=== PATIENT | female | born 1965 ===

== ENCOUNTER 2020-05-11 11:22 | Outpatient (REF) | payer OTHER, SELFPAY ==
[2020-05-11 14:28] LABS: Alanine Aminotransferase 35 U/L (0-31); Albumin Level 4.5 g/dL (3.5-5.0); Alkaline Phosphatase 53 U/L (39-117); Anion Gap 13 (12-20); Aspartate Amino Transferase 28 U/L (5-31); Bilirubin Total 0.5 mg/dL (0.0-1.0); Blood Urea Nitrogen 12 mg/dL (9-16); Carbon Dioxide 30 mmol/L (22-29); Chloride 100 mmol/L (96-108); Cholesterol 192 mg/dL; Estimated Glomerular Filt Rate > 60; Glucose Fasting 105 mg/dL (60-99); HDL Cholesterol 64 mg/dL; LDL Cholesterol Calculated 115 mg/dl; Potassium 4.2 mmol/l (3.3-5.1); Sodium 139 mmol/L (135-145); Total Protein 7.5 g/dL (6.5-8.0); Triglycerides 67 mg/dL
[2020-05-11 14:30] LABS: Estimated Average Glucose 126 mg/dL
[2020-05-11 14:32] LABS: Calcium 10.1 mg/dL (8.4-10.2)
== END 2020-05-11 11:23 | disposition home or self-care (01) ==
LOC: HO.HMGCLDS 11:22
PROVIDERS: PCP Internal Medicine; Visit Provider Internal Medicine
DX: Z11.1 Encounter for screening for respiratory tuberculosis (principal); I10 Essential (primary) hypertension; Z78.0 Asymptomatic menopausal state
CPT/HCPCS: 80053; 80061; 82306; 83036; 86481

== ENCOUNTER → 2020-07-05 13:43 | Outpatient (REF) | payer OTHER, SELFPAY ==
--- NOTE | 2020-07-05 13:49 | ECG_ITS ---
Hook-up date: 2020-07-05 13:55:00 Duration: 20:27:00 Test Indications: PALPITATIONS Medications: 32403 QRS complexes 1414 Ventricular ectopics which represent 2 % of total QRS comp. * Supraventricular ectopics which represent % of total QRS comp. * Paced QRS complexs which represent % of total QRS comp. VENTRICULAR ECTOPY 1414 Isolated 3 Bigeminal Cycles 0 Couplets 0 Runs 0 Beats in Runs * Beats LONGEST at * BPM at :: -- * Beats FASTEST at * BPM at :: -- SUPRAVENTRICULAR ECTOPY * Isolated * Couplets * Runs * Beats in Runs * Beats LONGEST at * BPM at :: -- * Beats FASTEST at * BPM at :: -- HEART RATES 35 MIN at 05:53:48 2020-07-06 59 AVG 108 MAX at 19:07:36 2020-07-05 LONGEST RR 1.7440 secs at 05:53:47 2020-07-06 S-T LEVELS Channel 1 - 128 mm at 13:55:00 2020-07-05 - 128 mm at 13:55:00 2020-07-05 Channel 2 - 128 mm at 13:55:00 2020-07-05 - 128 mm at 13:55:00 2020-07-05 Channel 3 - 128 mm at 03:31:41 -- - 128 mm at 03:31:41 Basic rhythm Normal sinus rhythm Frequent Sinus bradycardia , 50% of time HR < 60 bpm No long pause or profound bradycardia Frequent Premature ventricular complexes , 2% of total beats, unifocal and isolated Patient did not report any symptoms in the diary Referred By: Ksenia Bergeron Overread By: USHA MARIN MD
== END ==
LOC: HO.CARD 13:43
PROVIDERS: PCP Internal Medicine; Visit Provider Internal Medicine
DX: R00.2 Palpitations (principal)
CPT/HCPCS: 93225; 93226

== ENCOUNTER 2020-07-24 10:09 | Outpatient (REF) | payer OTHER, SELFPAY ==
[2020-07-24 11:55] LABS: SARS COV2 IgG Negative (Negative)
== END 2020-07-24 10:10 | disposition home or self-care (01) ==
LOC: HO.HMGCLDS 10:09
PROVIDERS: PCP Internal Medicine; Visit Provider Internal Medicine
DX: R79.89 Other specified abnormal findings of blood chemistry (principal); Z20.828 Contact with and (suspected) exposure to other viral communicable diseases
CPT/HCPCS: 86769

== ENCOUNTER 2020-07-26 10:44 | Outpatient (REF) | payer OTHER, SELFPAY ==
[2020-07-26 11:03] LABS: COVID-19 Test Negative (Negative)
== END 2020-07-26 10:45 | disposition home or self-care (01) ==
LOC: HO.EMPCOV 10:44
PROVIDERS: Visit Provider Internal Medicine
DX: Z20.828 Contact with and (suspected) exposure to other viral communicable diseases (principal)
CPT/HCPCS: 87635; C9803

== ENCOUNTER → 2020-08-02 13:20 | Outpatient (BNVA) | payer OTHER, SELFPAY | PROVIDERS: PCP Internal Medicine; Visit Provider Internal Medicine Cardiovascular Disease | DX: R06.02 Shortness of breath (principal); I49.3 Ventricular premature depolarization; Q25.0 Patent ductus arteriosus; I10 Essential (primary) hypertension | CPT/HCPCS: 93005 ==

== ENCOUNTER → 2020-08-30 09:18 | Outpatient (REF) | payer OTHER, SELFPAY ==
--- NOTE | 2020-08-30 09:22 | CA_ITS ---
Transthoracic Echocardiogram Patient (Last, First, Middle): Saleem Holley, Gender: Female Date of : 1965 Age: 54 Procedure Date: 08/30/2020 Procedure Type: Transthoracic Echocardiogram Location: OP Height: 167.64 cm Weight: 81.65 kg BSA: 1.91 m2 Heart Rate: bpm BP: 128 / 70 mmHg Rib Trim Separator: SHERLY Referring MD: Jeff Phan MD Symptoms: Q25.0 - Patent ductus arteriosus Study Quality: Fair ECG Rhythm: Sinus Conclusions: - The left ventricular systolic function is hyperdynamic. The visually estimated ejection fraction is >70%. The calculated ejection fraction is 72% by biplane method. - No obvious valvular pathology seen on this study. - Based on the available images, no evidence of patent ductus arteriosus. Findings Left Ventricle Normal left ventricular cavity size. There is normal left ventricular wall thickness. The left ventricular systolic function is hyperdynamic. The visually estimated ejection fraction is >70%. The calculated ejection fraction is 72% by biplane method. There is no evidence of regional wall motion abnormalities. Diastolic function is normal for age. Right Ventricle Normal right ventricular cavity size and systolic function. Atria Both atria are normal in size. Aortic Valve The aortic valve was not well visualized. There is no aortic valve stenosis. There is no aortic valve regurgitation. Mitral Valve The mitral valve appears normal. There is no mitral valve regurgitation. There is no mitral valve stenosis. Pulmonic Valve The pulmonic valve was not well visualized. Tricuspid Valve Normal tricuspid valve structure. There is trace tricuspid valve regurgitation. Tricuspid regurgitation envelope is inadequate for calculation of right ventricular systolic pressure. Great Vessels The aortic annulus, sinuses of valsalva, asc aorta, and aortic arch are normal in size. Venous The inferior vena cava is normal in size and collapses greater than 50% with inspiration. Pericardium/Pleural There is no evidence of pericardial effusion. Prior Study Comparison No significant change compared to prior study dated: 10/27/2016. Recommendations, Care & Conclusions No obvious valvular pathology seen on this study. Measurements M-Mode Liner Measurements Normals - Women/Men AOV Cusps: 2.30 1.5-2.6 cm/m2 2D Linear Measurements IVSd: 0.67 0.6-0.9/0.6-1.0 cm LVIDd: 4.27 3.9-5.3/4.2-5.9 cm LVIDd Index: 2.24 2.4-3.2/2.2-3.1 cm/m2 LVIDs: 2.30 2.0-3.6 cm LVPWd: 0.80 0.7-1.1 cm Ao Root: 2.80 2.1-3.5 cm LA Diam: 3.00 2.7-3.8/3.0-4.0 cm LAIDs Index: 1.57 1.5-2.3 cm/m2 LV Mass: 115.61 67-162/88-224 g LV Mass Index: 60.53 43-95/49-115 g/m2 LVOT Diam: 2.00 3.0+(-)1.3 cm 2D Systolic Function EF 4C: 76.90 >55% EF 2C: 67.80 >55% EF BiP: 72.10 >55% Mitral Valve MV Pk E: 0.92 MV PK A: 0.49 MV Decel Time: 268.00 E/A: 1.90 E'Lateral: 9.25 E'Medial: 9.03 E/E' Med: 10.20 E/E' Lat: 9.90 PHT: 78.00 MVA PHT: 2.82 Decel Van Zandt: 3.43 Aortic Valve AoV Pk Alvarado: 1.39 AoV Pk Grad: 8.00 LVOT LVOT Pk Alvarado: 1.04 LVOT Mn Alvarado: 0.79 LVOT VTI: 0.31 LVOT Pk Grad: 4.00 LVOT Mn Grad: 3.00 LVOT Diam: 2.00 LVOT Area: 3.14 Diastolic Function MV Pk E: 0.92 MV Pk A: 0.49 E/A: 1.90 E'Medial: 9.03 E/E' Med: 10.20 E' Laterial: 9.25 E/E' Lat: 9.90 Tricuspid Valve RA Press: 3.00 Great Vessels Aorta Ao Root-2D: 2.80 2.0-3.7 cm Ao Asc: 2.70 2.1-3.4 cm Ao Arch: 2.00 Pulmonary Valve PV Pk Alvarado: 1.26 Peak PV Grad: 6.00 Updated in Other Vendor System with Status of Final Riaz Prince MD electronically signed on 09/01/2020 2:07:18 PM with status of Final
== END ==
LOC: HO.CARD 09:18
PROVIDERS: Visit Provider Internal Medicine Cardiovascular Disease
DX: I49.3 Ventricular premature depolarization (principal); Q25.0 Patent ductus arteriosus; R06.02 Shortness of breath
CPT/HCPCS: 93306

== ENCOUNTER → 2020-09-03 11:35 | Outpatient (REF) | payer OTHER, SELFPAY ==
--- NOTE | 2020-09-03 10:40 | CA_ITS ---
Acquisition Time: 2020-09-03 11:20:42 Total Exercise Time: 00:06:52 Test Indications: SOB Medications: SEE CHART Protocol: ALY Max HR: 162 BPM 97% of Pred: 167 BPM Max BP: 174/074 mmHG Max Work Load: 7.0 METS Exercise stress ECHO using Aly protocol. Total of 6 min 52 sec. METS 7.00 and TAPHR up to 97%. Pt tolerated well, [place] any anginal sx. Some SOB at peak exercise. EKG with isolated PVC's, Horizontal ST depressions seen inferiorly and laterally. ECHO images taken at rest and immediately after peak HR reached. Definity contrast used. Normotensive response to exercise. Test reviewed with Dr. Prince. Referred By: Jeff Phan Overread By: Abhay Russell
== END ==
LOC: HO.CARD 11:35
PROVIDERS: Visit Provider Internal Medicine Cardiovascular Disease
DX: I10 Essential (primary) hypertension (principal); R06.02 Shortness of breath
CPT/HCPCS: 93350; Q9957

== ENCOUNTER → 2020-09-06 14:06 | Outpatient (BNVA) | payer OTHER, SELFPAY | PROVIDERS: PCP Internal Medicine; Visit Provider Internal Medicine Cardiovascular Disease ==

== ENCOUNTER 2020-10-03 07:40 | Outpatient (REF) | payer OTHER, SELFPAY ==
[2020-10-03 08:08] LABS: COVID-19 Test Negative (Negative); IDNOW Serial# 55D5AD1C
== END 2020-10-03 07:41 | disposition home or self-care (01) ==
LOC: HO.EMPCOV 07:40
PROVIDERS: Visit Provider Internal Medicine
DX: Z11.52 Encounter for screening for COVID-19 (principal)
CPT/HCPCS: 36415; 87635; C9803

== ENCOUNTER 2020-10-03 13:14 | Outpatient (REF) | payer OTHER, SELFPAY ==
[2020-10-03 14:07] LABS: Hematocrit 43.9 % (37-47); Hemoglobin 13.9 g/dl (12.0-16.0); Mean Corpuscular HGB Conc 31.7 g/dl (31.0-35.0); Mean Corpuscular Volume 88.5 fL (80-98); Platelet Count 241 X10*3/uL (160-400); Red Blood Count 4.96 X10*6/uL (4.20-5.50); White Blood Count 6.4 X10*3/uL (4.8-10.8)
[2020-10-03 14:08] LABS: Prothrombin Time 12.2 SEC (10.8-13.0)
[2020-10-03 14:33] LABS: Alanine Aminotransferase 44 U/L (0-31); Albumin Level 4.4 g/dL (3.5-5.0); Alkaline Phosphatase 50 U/L (39-117); Anion Gap 12 (12-20); Aspartate Amino Transferase 28 U/L (5-31); Bilirubin Total 0.5 mg/dL (0.0-1.0); Blood Urea Nitrogen 9 mg/dL (9-16); Calcium 9.9 mg/dL (8.4-10.2); Carbon Dioxide 32 mmol/L (22-29); Chloride 99 mmol/L (96-108); Estimated Glomerular Filt Rate > 60; Glucose Random 100 mg/dL (60-115); Potassium 4.1 mmol/L (3.3-5.1); Sodium 139 mmol/L (135-145); Total Protein 7.3 g/dL (6.5-8.0)
[2020-10-03 14:59] LABS: TSH reflex Free T4 1.52 uIU/mL (0.32-4.0)
[2020-10-04 04:55] LABS: SARS COV2 IgG Negative (Negative)
== END 2020-10-03 13:15 | disposition home or self-care (01) ==
LOC: HO.HMGCLDS 13:14
PROVIDERS: PCP Internal Medicine; Visit Provider Internal Medicine Cardiovascular Disease
DX: R06.02 Shortness of breath (principal); I49.3 Ventricular premature depolarization; R00.2 Palpitations; I10 Essential (primary) hypertension; Q25.0 Patent ductus arteriosus; Z78.0 Asymptomatic menopausal state; Z01.84 Encounter for antibody response examination
CPT/HCPCS: 36415; 80053; 82306; 84443; 85027; 85610; 86769

== ENCOUNTER → 2020-10-15 12:55 | Outpatient (BNVA) | payer OTHER, SELFPAY | PROVIDERS: PCP Internal Medicine; Visit Provider Nurse Practitioner Family ==

== ENCOUNTER 2021-01-09 10:29 | Outpatient (REF) | payer OTHER, SELFPAY | END 2021-01-09 10:30 | disposition home or self-care (01) | LOC: HO.LAB 10:29 | PROVIDERS: Visit Provider Nurse Practitioner Family | DX: J02.9 Acute pharyngitis, unspecified (principal); Z20.822 Contact with and (suspected) exposure to COVID-19 | CPT/HCPCS: U0003; U0005 ==

== ENCOUNTER 2021-05-13 13:53 | Outpatient (REF) | payer OTHER, SELFPAY ==
--- NOTE | ~2021-05-13 | MM_ITS ---
EXAMINATION: MM SCREENING DIGITAL BREAST TOMOSYNTHESIS, BILATERAL CLINICAL INFORMATION: Screening. Asymptomatic. Family history breast cancer, sister. The lifetime risk of breast cancer based on the Tyrer-Cuzick Model is 25%. COMPARISON: Mammography: 03/22/2019, 12/17/2015, 01/30/2014 TECHNIQUE: Digital breast tomosynthesis is performed in both the craniocaudal and mediolateral oblique views along with computer-aided detection (CAD). Synthesized 2D images are generated from the tomosynthesis. FINDINGS: There are scattered areas of fibroglandular density (ACR BI-RADS breast composition Category b). Breast tissue composition borders on average fibroglandular. There is a biopsy clip marker again noted central upper left breast mid depth. There are no significant masses, abnormal calcifications, or other abnormalities. No developing density. The skin contours are smooth. No significant changes prior studies. MM/MM tomosynthesis screening BI IMPRESSION: No mammographic evidence of malignancy. ASSESSMENT: BI-RADS 1: Negative RECOMMENDATION: 1. Routine annual mammography screening. 2. The lifetime risk of breast cancer based on the Tyrer-Cuzick Model is 25%. Additional annual adjunct screening with breast MRI may be of benefit in women with a risk score of 20% or greater. This patient's information was entered into a reminder system with a target due date for their next mammogram.
== END 2021-05-13 13:54 | disposition home or self-care (01) ==
LOC: HO.MAMMO 13:53
PROVIDERS: Visit Provider Obstetrics & Gynecology
DX: Z12.31 Encounter for screening mammogram for malignant neoplasm of breast (principal)
CPT/HCPCS: 77063; 77067

== ENCOUNTER 2021-07-24 11:49 | Outpatient (REF) | payer OTHER, SELFPAY ==
[2021-07-24 13:09] LABS: Influenza A PCR NEGATIVE (Negative); Influenza B PCR NEGATIVE (Negative); Resp Syncy Virus RNA Qual PCR NEGATIVE (Negative); SARS COV2 PCR INHOUSE NEGATIVE (Negative)
== END 2021-07-24 11:50 | disposition home or self-care (01) ==
LOC: HO.LNP 11:49
PROVIDERS: Visit Provider Internal Medicine
DX: Z20.822 Contact with and (suspected) exposure to COVID-19 (principal)
CPT/HCPCS: 0241U

== ENCOUNTER 2021-10-15 08:28 | Outpatient (REF) | payer OTHER, SELFPAY ==
[2021-10-15 11:48] LABS: Estimated Average Glucose 120 mg/dL; Hemoglobin A1C 149.4485 umol/L; Hemoglobin A1c % 5.8 %
[2021-10-15 11:59] LABS: Alanine Aminotransferase 21 U/L (0-31); Anion Gap 13 (12-20); Aspartate Amino Transferase 21 U/L (5-31); Blood Urea Nitrogen 9 mg/dL (9-16); Calcium 10.1 mg/dL (8.4-10.2); Carbon Dioxide 28 mmol/L (22-29); Chloride 101 mmol/L (96-108); Cholesterol 192 mg/dL; Estimated Glomerular Filt Rate > 60; Glucose Fasting 111 mg/dL (60-99); HDL Cholesterol 55 mg/dL; LDL Cholesterol Calculated 120 mg/dl; Potassium 4.1 mmol/L (3.3-5.1); Sodium 138 mmol/L (135-145); Triglycerides 88 mg/dL
[2021-10-15 12:07] LABS: TSH reflex Free T4 2.13 uIU/mL (0.32-4.0)
== END 2021-10-15 08:29 | disposition home or self-care (01) ==
LOC: HO.HMGCLDS 08:28
PROVIDERS: Visit Provider Internal Medicine
DX: I49.3 Ventricular premature depolarization (principal); R00.2 Palpitations; R06.02 Shortness of breath; I10 Essential (primary) hypertension; Z78.0 Asymptomatic menopausal state
CPT/HCPCS: 36415; 80048; 80061; 83036; 84443; 84450; 84460

== ENCOUNTER 2022-04-22 08:53 | Outpatient (REF) | payer OTHER, SELFPAY ==
--- NOTE | ~2022-04-22 | XR_ITS ---
EXAMINATION: XR THORACIC SPINE CLINICAL INFORMATION: Pain in thoracic spine COMPARISON: MRI thoracic spine from 02/11/2013 TECHNIQUE: 3 views of the thoracic spine were obtained. FINDINGS: No acute visible fracture or dislocation. Very slight dextrocurvature of the mid to lower thoracic spine. Mild multilevel degenerative changes disc space narrowing, osteophyte formation and facet arthropathy. Vertebral body heights and spaces are otherwise maintained. Posterior elements are intact. Paraspinal soft tissues are unremarkable. Utilized portions of the chest are unremarkable. XR/XR thoracic spine 3V IMPRESSION: 1. No acute visible fracture or dislocation. 2. Very slight dextrocurvature of the mid to lower thoracic spine. 3. Mild multilevel degenerative changes.
== END 2022-04-22 08:54 | disposition home or self-care (01) ==
LOC: HO.HMGCX 08:53
PROVIDERS: Visit Provider Internal Medicine
DX: M54.6 Pain in thoracic spine (principal)
CPT/HCPCS: 72072

== ENCOUNTER 2022-05-19 13:28 | Outpatient (REF) | payer OTHER, SELFPAY ==
--- NOTE | ~2022-05-19 | MM_ITS ---
EXAMINATION: MM DIAGNOSTIC DIGITAL BREAST TOMOSYNTHESIS, BILATERAL US BREAST TARGETED, RIGHT CLINICAL INFORMATION: Right breast lump upper outer quadrant. The lifetime risk of breast cancer based on the Tyrer-Cuzick Model is 16.0%. COMPARISON: Mammography: 05/13/2021 and studies dating back to 05/31/2010. TECHNIQUE: Digital breast tomosynthesis is performed in both the craniocaudal and mediolateral oblique views along with computer-aided detection (CAD). Synthesized 2-D images are generated from the tomosynthesis. Additional right exaggerated craniocaudal view performed. Targeted right breast ultrasound. FINDINGS: The breasts are heterogeneously dense, which may obscure small masses (ACR BI-RADS breast composition Category c). There are some stable calcifications seen bilaterally. Clip from previous left breast biopsy is evident. No new abnormal dominant mass or more suspicious grouping of microcalcifications identified. No region of architectural distortion is seen. Targeted right breast ultrasound to palpable region superiorly did not demonstrate any abnormal cystic or solid lesion. No area of distal sound shadowing is appreciated. No edematous change within the parenchyma is seen. Results are discussed with the patient at time of visit. MM/MM tomosynthesis diagnostic BI IMPRESSION: There are no significant changes from prior study. No right breast lesion appreciated. ASSESSMENT: BI-RADS 1: Negative. RECOMMENDATION: Routine annual mammography screening. Clinical follow up for palpable abnormality not imaged. This patient's information was entered into a reminder system with a target due date for their next mammogram.
== END 2022-05-19 13:29 | disposition home or self-care (01) ==
LOC: HO.MAMMO 13:28
PROVIDERS: Visit Provider Internal Medicine
DX: N63.11 Unspecified lump in the right breast, upper outer quadrant (principal)
CPT/HCPCS: 76642; 77062; 77066

== ENCOUNTER 2022-10-13 12:48 | Outpatient (REF) | payer OTHER, SELFPAY ==
--- NOTE | ~2022-10-13 | MR_ITS ---
EXAMINATION: MR THORACIC SPINE WITHOUT CONTRAST CLINICAL INFORMATION: Back pain thoracic region. COMPARISON: Thoracic spine radiographs 04/22/2022. TECHNIQUE: MRI of the thoracic spine was obtained using routine sequences without contrast. FINDINGS: Alignment is normal in the sagittal dimension. Vertebral heights are preserved. No acute bone marrow signal changes. There is loss of intervertebral disc height and T2 signal intensity at multiple levels related to disc degeneration. And asymmetrically bulging disc to the left at T9-T10 causes indentation of the thecal sac and mild canal stenosis. There are a few shallow protrusions and/or bulging discs at multiple additional levels within the thoracic spine. No canal or neuroforaminal compromise. No cord compression or abnormal intramedullary signal changes. Limited visualization of intrathoracic anatomy reveals no abnormal finding. MR/MR thoracic spine wo con IMPRESSION: There is multilevel degenerative spondylosis of the thoracic spine. An asymmetrically bulging disc at T9-T10 causes mild canal stenosis. Otherwise no canal compromise. No cord compression or abnormal intramedullary signal changes.
== END 2022-10-13 12:49 | disposition home or self-care (01) ==
LOC: HO.MRI 12:48
PROVIDERS: PCP Internal Medicine; Visit Provider Internal Medicine
DX: M54.14 Radiculopathy, thoracic region (principal)
CPT/HCPCS: 72146

== ENCOUNTER 2023-01-15 12:54 | Outpatient (AMB) | payer OTHER, SELFPAY ==
[2023-01-15 13:00] VITALS: BP 122/82; PULSE 69; O2SAT 100; BMI 25.0
--- NOTE | 2023-01-15 13:00 | A.OFFPC_ITS ---
Vital Signs 01/15/23 13:00 Height 5 ft 6 in Weight 155 lb BMI 25.0 BP 122/82 Blood Pressure Location Rt brachial Position Sitting Pulse 69 Pulse Source Pulse Oximeter Pulse Oximetry (%) 100 Oxygen Delivery Method Room Air Intake Visit Reasons: PE Intake Note: Pt is here today for her PE Allergies latex [Latex] Allergy (Mild, Unverified 01/15/23 13:10) RASH avocado [AVOCADO] Allergy (Unknown, Unverified 01/15/23 13:10) NAUSEA kim [KIM] Allergy (Unknown, Unverified 01/15/23 13:10) BOILS walnut [WALNUT] Allergy (Unknown, Unverified 01/15/23 13:10) ITCHY Medication List - Last Reconciled 01/15/23 by Ksenia Bergeron MD albuterol sulfate 90 mcg/actuation 2 puffs inhalation Q6H PRN clonidine HCl 0.1 mg PO BID 90 days finasteride 5 mg PO DAILY gabapentin 100 mg PO TID minoxidil 2.5 mg PO DAILY mometasone-formoterol 200-5 mcg/actuation (Dulera) 2 puffs inhalation Q12H montelukast 10 mg PO QPM pramipexole 0.5 mg PO BEDTIME spironolactone 50 mg PO BID 90 days valacyclovir 500 mg PO DAILY Tobacco use date assessed: 01/15/23 Dental Screening Did you have a dental visit in the last 12 months?: No Was dental information given to patient?: No HPI PE HPI Details 57-year-old lady here today for her physical exam. She is up-to-date with her screening mammogram due again later this year, sees Dr. Newton for her routine Pap and pelvic exam, which is currently up to date. Last screening colonoscopy was done in [address] Prince, with negative findings, to be repeated in 5 years due to positive family history of colon cancer, sister. She had bone density scan done in 2019 which showed normal findings. She is up-to-date with her Tdap and shingles vaccine, has had her COVID vaccines but did not get the booster as she developed recurrent cold sores and had shingles after getting the shots,leery of getting the booster. Also does not want to get her pneumonia vaccine at present time. She has adhesive capsulitis in her left shoulder, which causes discomfort and decreased range of motion in her left side. Has already been seen by Orthopedics and has had injections in physical therapy, with not much improvement. She has thoracic spinal stenosis with radiculitis mainly in her right mid back. Has been having recurrent pain mainly in her right mid back ? Has tried physical therapy and prednisone, which did not afforded much improvement, takes ibuprofen almost on a daily basis and gabapentin 100 mg 1 tablet in the morning and 2 tablets at night, which helps and wears a back brace, which affords temporary relief. She has restless leg controlled with taking pramipexole, has hypertension stable controlled on spironolactone, clonidine. She has mild intermittent asthma currently on Dulera and as needed albuterol. She takes finasteride and minoxidil prescribed by her doctor in [place], for thinning hair which has been helping. [facility] Medical History Adhesive capsulitis of left shoulder Family history of colon cancer Hair thinning HTN (hypertension) Intermittent palpitations Menopause Mild intermittent asthma in adult without complication PDA (patent ductus arteriosus) PVC (premature ventricular contraction) Recurrent cold sores Restless leg syndrome Thoracic radiculitis Unspecified lump in the right breast, upper outer quadrant Surgical History S/P cardiac cath (~09/2020) S/P PDA repair Family History Father HTN (hypertension) Diabetes CAD (coronary artery disease) Mother Cancer Brother Mental health disorder Social History Housing: House Patient Tobacco Use Status: Never used Tobacco e-Cigarette/Vaping Use: Never Used Current occupational status: employed Cognitive needs: No Hearing needs: No Vision needs: Yes Questionnaire PHQ-9 Over the last 2 weeks, how often have you been bothered by any of the following problems? 1. Little interest or pleasure in doing things: not at all 2. Feeling down, depressed, or hopeless: not at all 3. Trouble falling or staying asleep, or sleeping too much: not at all 4. Feeling tired or having little energy: not at all 5. Poor appetite or overeating: not at all 6. Feeling bad about yourself - or that you are a failure or have let yourself or your family down: not at all 7. Trouble concentrating on things, such as reading the newspaper or watching television: not at all 8. Moving or speaking so slowly that other people could have noticed. Or the opposite - being so fidgety or restless that you have been moving around a lot more than usual: not at all 9. Thoughts that you would be better off or of hurting yourself in some way: not at all Total score: 0 Depression Screening Interpretation: Negative 75504 - PHQ-9 Billing: Yes Source: Developed by Drs. Marcos Sanchez, Deepthi Acevedo, Shaggy Soni and colleagues, with an educational enmanuel from [employer]. Thrive Questionnaire Date Thrive assessed: 01/15/23 I am a: Patient What is your living situation today?: I have a steady place to live Within the past 12 months, did the food you bought not last and you didn't have the money to get more?: Never true Within the past 12 months, did you worry whether your food would run out before you got money to buy more?: Never true Do you have trouble paying for medicines?: No Do you have trouble getting transportation to medical appointments?: No Do you have trouble paying your heating and electricity bill?: No Do you have trouble taking care of your child, family member or friend?: No Do you have trouble with day-to-day activities such as bathing, preparing meals, shopping, managing finances, etc.?: No Are you currently unemployed and looking for a job?: No Are you interested in more education?: No AUDIT C Alcohol Use Questionnaire (AUDIT-C) 1. How often do you have a drink containing alcohol?: Never Total Score: 0 AMALIA-7 AMB Questionnaire AMALIA-7 Date AMALIA - 7 assessed: 01/15/23 Feeling nervous, anxious, or on edge: 0 = Not at all Not being able to stop or control worryin = Not at all Worrying too much about different things: 0 = Not at all Trouble relaxin = Not at all Being so restless that it is hard to sit still: 0 = Not at all Becoming easily annoyed or irritable: 0 = Not at all Feeling afraid as if something awful might happen: 0 = Not at all Total AMALIA-7 score (0-4 normal; 5-9 mild; 10-14 moderate; 15-21 severe): 0 Source: Developed by Drs. Marcos Sanchez, Deepthi Acevedo, Shaggy Soni and colleagues, with an educational enmanuel from [employer]. AMALIA-7 Assessment Billing AMALIA-7 Assessment Tool: AMALIA-7 Assessment 96370 ACT Questionnaire In the past 4 weeks, how much of the time did your asthma keep you from getting as much done at work, school or at home?: None of the time During the past 4 weeks, how often have you had shortness of breath?: Not at all During the past 4 weeks, how often did your asthma symptoms wake you up at night or earlier than usual in the morning?: Not at all During the past 4 weeks, how often have you had to use your rescue inhaler or nebulizer medication?: Not at all How would you rate your asthma control during the past 4 weeks?: Completely controlled Score: 25 Review of Systems Const Denies daytime sleepiness, Denies fatigue, Denies fever(s), Denies headache(s) and Denies weakness Eyes Details: was being seen at [facility] in [place] Denies change in vision, Denies eye discharge, Denies itchy eyes and Reports requires corrective lenses ENT Reports Normal hearing present, Denies dizziness, Denies headache(s), Denies mouth lesions, Denies nasal congestion, Denies nasal discharge and Denies sore throat Card Denies chest pain, Denies lightheadedness, Denies palpitations and Denies dyspnea Resp Denies chest congestion, Denies cough, Denies dyspnea and Denies wheezing GI Denies abdominal pain, Denies change in bowel habits and Denies heartburn Denies hematuria, Denies urinary frequency, Denies dysuria and Denies urinary urgency Musc Reports as per HPI Skin/Breast Denies breast pain, Denies breast mass, Denies lesions and Denies rash Neuro Reports Normal hearing present, Denies dizziness, Denies headache(s) and Denies weakness Psych Reports no additional complaints Endo Denies fatigue, Denies polydipsia, Denies polyuria and Denies palpitations Chan/Lymph Denies easy bruising Aller/Immun Denies itchy eyes, Denies seasonal rhinorrhea and Denies wheezing Physical exam (Primary Care) Vital Signs: Last Vital Signs Pulse 69 01/15/23 13:00 BP 122/82 01/15/23 13:00 Pulse Ox 100 01/15/23 13:00 Oxygen Delivery Method Room Air 01/15/23 13:00 BMI result Body Mass Index 25.0 Tobacco/Smoking Status: Tobacco use Status Tobacco use date assessed 01/15/23 01/15/23 13:04 Patient Tobacco Use Status Never used Tobacco 01/15/23 13:04 e-Cigarette/Vaping Use Never Used 01/15/23 13:04 PHQ-9: PHQ-9 Score PHQ-9: Total score 0 01/15/23 14:00 Depression Screening Interpretation: Negative Thrive Assessment: Date of Thrive Assessment Date Thrive assessed 01/15/23 01/15/23 13:04 Const Other: Alert oriented x3, no acute cardiorespiratory distress noted, ambulatory with normal gait Orientation/consciousness: patient oriented x3 HENMT Head: Yes normocephalic and Yes atraumatic Ears: hearing grossly normal bilaterally, external ears normal, TM's normal bilaterally and EAC's normal General nose exam: Normal external nose present Face and sinus: Yes face symmetric Mouth: Normal oral and palatal mucosa present, tongue normal, oropharynx normal and moist mucous membranes Eyes General: appearance normal, both eyes and all related structures Neck Neck: Yes full ROM, Yes no lymphadenopathy and Yes supple Thyroid: Thyroid normal (Nonpalpable) Resp Effort & Inspection: normal respiratory effort and able to speak in complete sentences Auscultation: clear to auscultation bilaterally Cardio Rate: regular rate Rhythm: regular rhythm Heart sounds: S1 normal heart sound present and S2 normal heart sound present GI Palpation (GI): Soft to palpation, nontender, no guarding and no masses Auscultation: normal bowel sounds Other: Goes to [facility] for her routine Pap and pelvic exam, currently up-to-date Back/Spine/Pelvis Thoracic/Lumbar Spine: straight leg raise negative bilaterally and paraspinal muscle tenderness on the left Skin General skin exam: no rashes or lesions noted Neuro General: patient oriented x3, gait normal, tone normal, moves all extremities (Except for left shoulder joint), Normal light touch and pain sensation, no focal motor deficits and CN's II-XI intact bilaterally Cranial nerves: Yes Normal hearing present Extrem Other: Full range of motion in all extremities except for the left shoulder Left upper extremity: shoulder/upper arm Details: abnormal ROM (Unable to fully abduct more than 90 degrees) Details: pain with passive ROM Details: in ABduction, in extension, in internal rotation and external rotation- Psych Appearance: grossly normal Mental Status: mental status grossly normal Speech and movement: Normal speech and movement present Affect: normal affect Attitude: cooperative Assessment and Plan Assessment & Plan (1) Annual visit for general adult medical examination with abnormal findings: Code(s): Z00.01 - Encounter for general adult medical examination with abnormal findings Plan: Will check appropriate labs. Continue with regular dental visit every 6 months and regular eye exams, at least every 2 years. Take adequate calcium in diet and vitamin-D 3 at 2000 IU per cap once a day, in addition to weight-bearing exercises to help maintain good muscle tone and weight control. Instructed to do self-breast exam, and is up-to-date with her yearly mammogram in cervical cancer screening, sees [facility]. Up-to-date with her shingles vaccine and Tdap, has had her COVID vaccinations but does not want to get her booster flu shot or pneumonia vaccine at present time. (2) HTN (hypertension): Code(s): I10 - Essential (primary) hypertension Plan: Blood pressure at goal of less than 130/80. Continue with current medication. Reinforced importance of following a low sodium diet, getting regular exercise, and lowering stress levels. (3) Mild intermittent asthma in adult without complication: Code(s): J45.20 - Mild intermittent asthma, uncomplicated Plan: Asthma stable well controlled on Dulera and rarely needing to use her albuterol inhaler. 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 Plan: Takes valacyclovir as needed (5) Thoracic radiculitis: Code(s): M54.14 - Radiculopathy, thoracic region Plan: Currently on gabapentin 100 mg 1 tablet in the morning and 2 tablets at bedtime, (6) Restless leg syndrome: Code(s): G25.81 - Restless legs syndrome Plan: Continue on pramipexole 0.5 mg at bedtime (7) Asymptomatic age-related postmenopausal state: Code(s): Z78.0 - Asymptomatic menopausal state Plan: Will check vitamin-D and calcium, last bone density scan was normal in 2019 (8) Family history of colon cancer: Comment: Sister in her 60s Code(s): Z80.0 - Family history of malignant neoplasm of digestive organs Plan: Referred for screening colonoscopy (9) Colon cancer screening: Code(s): Z12.11 - Encounter for screening for malignant neoplasm of colon Plan: Referral to Dr. Wilson for screening colonoscopy (10) Adhesive capsulitis of left shoulder: Code(s): M75.02 - Adhesive capsulitis of left shoulder Plan: Takes gabapentin , relief with physical therapy or steroid injections. (11) Hair thinning: Code(s): L65.9 - Nonscarring hair loss, unspecified Plan: Continue with minoxidil and finasteride Orders: Orders Comprehensive [place]aca. Panel Fast 01/15/23 M75.00 - Adhesive capsulitis of unspecified shoulder, I10 - Essential (primary) hypertension, Z00.01 - Encounter for general adult medical examination with abnormal findings, G25.81 - Restless legs syndrome, J45.20 - Mild intermittent asthma, uncomplicated, B00.1 - He rpesviral vesicular dermatitis, M54.14 - Radiculopathy, thoracic region, Z78.0 - Asymptomatic menopausal state Hemoglobin A1c 01/15/23 M75.00 - Adhesive capsulitis of unspecified shoulder, I10 - Essential (primary) hypertension, Z00.01 - Encounter for general adult medical examination with abnormal findings, G25.81 - Restless legs syndrome, J45.20 - Mild intermittent asthma, uncomplicated, B00.1 - Herpesviral vesicular dermatitis, M54.14 - Radiculopathy, thoracic region, Z78.0 - Asymptomatic menopausal state Lipid Panel 01/15/23 M75.00 - Adhesive capsulitis of unspecified shoulder, I10 - Essential (primary) hypertension, Z00.01 - Encounter for general adult medical examination with abnormal findings, G25.81 - Restless legs syndrome, J45.20 - Mild intermittent asthma, uncomplicated, B00.1 - Herpesviral vesicular dermatitis, M54.14 - Radiculopathy, thoracic region, Z78.0 - Asymptomatic menopausal state TSH reflex Free T4 01/15/23 M75.00 - Adhesive capsulitis of unspecified shoulder, I10 - Essential (primary) hypertension, Z00.01 - Encounter for general adult medical examination with abnormal findings, G25.81 - Restless legs syndrome, J45.20 - Mild intermittent asthma, uncomplicated, B00.1 - Herpesviral vesicular dermatitis, M54.14 - Radiculopathy, thoracic region, Z78.0 - Asymptomatic menopausal state Vitamin D 25-OH Total 01/15/23 M75.00 - Adhesive capsulitis of unspecified shoulder, I10 - Essential (primary) hypertension, Z00.01 - Encounter for general adult medical examination with abnormal findings, G25.81 - Restless legs syndrome, J45.20 - Mild intermittent asthma, uncomplicated, B00.1 - Herpesviral vesicular dermatitis, M54.14 - Radiculopathy, thoracic region, Z78.0 - Asymptomatic menopausal state Complete Blood Count Auto Diff 01/15/23 M75.00 - Adhesive capsulitis of unspecified shoulder, I10 - Essential (primary) hypertension, Z00.01 - Encounter for general adult medical examination with abnormal findings, G25.81 - Restless legs syndrome, J45.20 - Mild intermittent asthma, uncomplicated, B00.1 - Herpesviral vesicular dermatitis, M54.14 - Radiculopathy, thoracic region, Z78.0 - Asymptomatic menopausal state Referrals Gastroenterology Referral Z12.11 - Encounter for screening for malignant neoplasm of colon, Z80.0 - Family history of malignant neoplasm of digestive organs Medications: New finasteride 5 mg PO DAILY 90 tabs 3RF minoxidil 2.5 mg PO DAILY 90 tabs 3RF Refilled clonidine HCl 0.1 mg PO BID 180 tabs 3RF 90 days Coding Level of Care Code Est Pt Prev Care 40-64y(75104) Diagnoses Annual visit for general adult medical examination with abnormal findings Z00.01 HTN (hypertension) I10 Mild intermittent asthma in adult without complication J45.20 Recurrent cold sores B00.1 Thoracic radiculitis M54.14 Restless leg syndrome G25.81 Asymptomatic age-related postmenopausal state Z78.0 Family history of colon cancer Z80.0 Colon cancer screening Z12.11 Adhesive capsulitis of left shoulder M75.02 Hair thinning L65.9 Additional Codes AMALIA-7 Assessment Billing - AMALIA-7 Assessment Tool: AMALIA-7 Assessment 52353 ([id number])
== END 2023-01-15 15:35 | disposition home or self-care (01) ==
PROVIDERS: PCP Internal Medicine; Visit Provider Internal Medicine
DX: Z00.01 Encounter for general adult medical examination with abnormal findings (principal); I10 Essential (primary) hypertension; J45.20 Mild intermittent asthma, uncomplicated; Z80.0 Family history of malignant neoplasm of digestive organs; B00.1 Herpesviral vesicular dermatitis; M54.14 Radiculopathy, thoracic region; G25.81 Restless legs syndrome; Z78.0 Asymptomatic menopausal state; Z12.11 Encounter for screening for malignant neoplasm of colon; M75.02 Adhesive capsulitis of left shoulder; L65.9 Nonscarring hair loss, unspecified
CPT/HCPCS: 99396

== ENCOUNTER 2023-02-06 07:18 | Outpatient (REF) | payer OTHER, SELFPAY ==
[2023-02-06 11:31] LABS: MANUAL DIFF FLAG NO
[2023-02-06 11:42] LABS: Basophils Percent Auto 0.6 % (0-2); Eosinophils Absolute Auto 0.3 X10*3/uL (0.0-0.4); Eosinophils Percent Auto 4.3 % (0-4); Hemoglobin 14.7 g/dl (12.0-16.0); Imm Gran Abs Auto 0.02 X10*3/uL (0.00-0.03); Imm Gran Pct Auto 0.3 % (0.0-0.4); Lymphocytes Absolute Auto 2.7 X10*3/uL (1.2-4.9); Lymphocytes Percent Auto 40.7 % (20-40); Mean Corpuscular Hemoglobin 28.3 pg (27.0-33.0); Mean Corpuscular Volume 88.5 fL (80.0-98.0); Mean Platelet Volume 11.9 fL (9.4-12.3); Monocytes Absolute Auto 0.5 X10*3/uL (0.1-1.2); Monocytes Percent Auto 7.8 % (2-11); Neutrophils Percent Auto 46.3 % (45-73); Platelet Count 247 X10*3/uL (160-400); Red Cell Distribution Width 12.8 % (11.0-16.0); White Blood Count 6.5 X10*3/uL (4.8-10.8)
[2023-02-06 12:34] LABS: Estimated Average Glucose 108 mg/dL; Hemoglobin A1c % 5.4 %
[2023-02-06 12:43] LABS: Alanine Aminotransferase 17 U/L (0-31); Albumin Level 4.4 g/dL (3.5-5.0); Alkaline Phosphatase 50 U/L (39-117); Anion Gap 12 (12-20); Aspartate Amino Transferase 21 U/L (5-31); Bilirubin Total 1.1 mg/dL (0.0-1.0); Blood Urea Nitrogen 11 mg/dL (9-16); Calcium 10.3 mg/dL (8.4-10.2); Carbon Dioxide 29 mmol/L (22-29); Chloride 100 mmol/L (96-108); Cholesterol 202 mg/dL; Estimated Glomerular Filt Rate > 60; Glucose Fasting 103 mg/dL (60-99); HDL Cholesterol 68 mg/dL; LDL Cholesterol Calculated 123 mg/dl; Potassium 3.6 mmol/L (3.3-5.1); Sodium 137 mmol/L (135-145); Total Protein 7.6 g/dL (6.5-8.0); Triglycerides 58 mg/dL
[2023-02-06 13:03] LABS: TSH reflex Free T4 2.38 uIU/mL (0.32-4.0); Vitamin D 25-OH Total 47.8 ng/mL (>30)
== END 2023-02-06 07:19 | disposition home or self-care (01) ==
LOC: HO.HMGCLDS 07:18
PROVIDERS: PCP Internal Medicine; Visit Provider Internal Medicine
DX: Z00.01 Encounter for general adult medical examination with abnormal findings (principal); B00.1 Herpesviral vesicular dermatitis; G25.81 Restless legs syndrome; I10 Essential (primary) hypertension; J45.20 Mild intermittent asthma, uncomplicated; M54.14 Radiculopathy, thoracic region; M75.00 Adhesive capsulitis of unspecified shoulder; Z78.0 Asymptomatic menopausal state
CPT/HCPCS: 36415; 80053; 80061; 82306; 83036; 84443; 85025

== ENCOUNTER 2023-10-16 07:35 | Outpatient (REF) | payer OTHER, SELFPAY ==
[2023-10-16 10:30] LABS: MANUAL DIFF FLAG NO
[2023-10-16 10:36] LABS: Basophils Percent Auto 0.6 % (0-2); Eosinophils Absolute Auto 0.2 X10*3/uL (0.0-0.4); Eosinophils Percent Auto 4.2 % (0-4); Hematocrit 43.4 % (37.0-47.0); Hemoglobin 13.9 g/dl (12.0-16.0); Imm Gran Abs Auto 0.01 X10*3/uL (0.00-0.03); Imm Gran Pct Auto 0.2 % (0.0-0.4); Lymphocytes Percent Auto 38.8 % (20-40); Mean Corpuscular Hemoglobin 28.3 pg (27.0-33.0); Mean Corpuscular Volume 88.2 fL (80.0-98.0); Mean Platelet Volume 12.1 fL (9.4-12.3); Monocytes Absolute Auto 0.4 X10*3/uL (0.1-1.2); Monocytes Percent Auto 8.3 % (2-11); Neutrophils Absolute Auto 2.5 x10*3/uL (2.0-8.3); Neutrophils Percent Auto 47.9 % (45-73); Platelet Count 238 X10*3/uL (160-400); Red Blood Count 4.92 X10*6/uL (4.20-5.50); Red Cell Distribution Width 13.1 % (11.0-16.0); White Blood Count 5.2 X10*3/uL (4.8-10.8)
[2023-10-16 10:50] LABS: Estimated Average Glucose 111 mg/dL; Hemoglobin A1c % 5.5 % (<6.0)
[2023-10-16 11:15] LABS: Alanine Aminotransferase 15 U/L (0-31); Albumin Level 4.3 g/dL (3.5-5.0); Alkaline Phosphatase 50 U/L (39-117); Anion Gap 10 (12-20); Aspartate Amino Transferase 18 U/L (5-31); Bilirubin Total 0.6 mg/dL (0.0-1.0); Blood Urea Nitrogen 10 mg/dL (9-16); Calcium 9.9 mg/dL (8.4-10.2); Carbon Dioxide 30 mmol/L (22-29); Chloride 102 mmol/L (96-108); Cholesterol 179 mg/dL (<200); Estimated Glomerular Filt Rate > 60; Glucose Fasting 100 mg/dL (60-99); HDL Cholesterol 64 mg/dL (>40); LDL Cholesterol Calculated 103 mg/dL (<100); Potassium 3.7 mmol/L (3.3-5.1); Sodium 138 mmol/L (135-145); Total Protein 7.3 g/dL (6.5-8.0); Triglycerides 60 mg/dL (<150); Vitamin D 25-OH Total 41.5 ng/mL (>30)
[2023-10-19 14:38] LABS: Calcium, Ionized 5.2 mg/dL (4.7-5.5)
== END 2023-10-16 07:36 | disposition home or self-care (01) ==
LOC: HO.HMGCLDS 07:35
PROVIDERS: PCP Internal Medicine; Visit Provider Internal Medicine
DX: Z13.220 Encounter for screening for lipoid disorders (principal); L65.9 Nonscarring hair loss, unspecified; I10 Essential (primary) hypertension; E83.52 Hypercalcemia; R73.01 Impaired fasting glucose; Z78.0 Asymptomatic menopausal state
CPT/HCPCS: 36415; 80053; 80061; 82306; 82330; 83036; 85025

== ENCOUNTER 2023-11-23 06:31 | Day surgery (SDC) | payer OTHER, SELFPAY ==
--- NOTE | 2023-11-19 15:46 | HO.ANESPROP2 ---
HPI - Anesthesia Eval Consult details Narrative: 58yo F for Colonoscopy PMFSH Active Problems Active Problems: All Active Problems Vitreous floaters of both eyes (Acute) Hair thinning (Acute) Adhesive capsulitis of left shoulder (Acute) Family history of colon cancer (Acute) Restless leg syndrome (Acute) Thoracic radiculitis (Acute) Recurrent cold sores (Acute) Mild intermittent asthma in adult without complication (Acute) PDA (patent ductus arteriosus) (Acute) Menopause (Acute) HTN (hypertension) (Acute) Past Medical History Medical History Hair thinning Adhesive capsulitis of left shoulder Family history of colon cancer Restless leg syndrome Thoracic radiculitis Unspecified lump in the right breast, upper outer quadrant Recurrent cold sores Mild intermittent asthma in adult without complication PDA (patent ductus arteriosus) PVC (premature ventricular contraction) Intermittent palpitations Menopause HTN (hypertension) Family History Family History Father HTN (hypertension) Diabetes CAD (coronary artery disease) Mother Cancer Brother Mental health disorder Surgical History Surgical History (Updated 11/23/23 @ 06:45 by Iliana Ozuna RN) History of cranial surgery H/O colonoscopy S/P cardiac cath (~09/2020) S/P PDA repair Social History Social History Housing: House Patient Tobacco Use Status: Never used Tobacco e-Cigarette/Vaping Use: Never Used Use of substances other than those prescribed or required for medical reasons: No Are you DNR?: No Advance Directives: No Advance Directives Information Provided: Yes Current occupational status: employed Cognitive needs: No Hearing needs: No Vision needs: Yes Meds Allergies Allergy/AdvReac Type Severity Reaction Status Date / Time latex [Latex] Allergy Mild RASH Verified 11/23/23 06:45 avocado [AVOCADO] Allergy Unknown NAUSEA Verified 11/23/23 06:45 kim [KIM] Allergy Unknown BOILS Verified 11/23/23 06:45 walnut [WALNUT] Allergy Unknown ITCHY Verified 11/23/23 06:50 Home Medications ?Medication ?Instructions ?Recorded ?Confirmed ?Last Taken ?Type montelukast 10 mg tablet 10 mg PO QPM PRN Allergy Symptoms 11/23/23 11/23/23 Unknown History Assessment and Plan Assessment Anesthesia Assessment: Chart Reviewed
[2023-11-23 06:47] VITALS: BMI 24.0
[2023-11-23 07:06] VITALS: BP 149/78; PULSE 51; RESP 15; TEMP 36.4; O2SAT 100
[2023-11-23] MEDS: Lactated Ringers 1,000 ML 100 ML IVCONT (07:09)
--- NOTE | 2023-11-23 08:34 | PM.OP ---
Brief Operative Note Date of Service: 11/23/23 Pre-op diagnosis: Screening Post-op diagnosis: other (Colon polyps) Procedure: Colonoscopy to the cecum and TI with hot snare polypectomy x 2 Surgeon: Marcos Wilson MD Anesthesia: MAC Was an After School Program Teacher used for this Procedure?: No Estimated blood loss (mL): 0 Pathology: other (A. Ascending colon polyps) Condition: stable Disposition: PACU
[2023-11-23 08:36] VITALS: BP 97/50; PULSE 68; RESP 16; TEMP 36.1; O2SAT 100
[2023-11-23 08:40] VITALS: BP 131/72; PULSE 84; RESP 16; O2SAT 100
[2023-11-23 08:50] VITALS: BP 134/74; PULSE 71; RESP 16; O2SAT 99
[2023-11-23 09:05] VITALS: BP 128/61; PULSE 63; RESP 16; TEMP 36.2; O2SAT 100
--- NOTE | 2023-11-23 13:45 | HO.POSTANES ---
Post Anesthesia Evaluation Post Anesthesia Evaluation Date of Service: 11/23/23 Vital Signs: Vital Signs Temp Pulse Resp BP Pulse Ox O2 Del Method O2 Flow Rate 11/23/23 09:05 97.1 F 63 16 128/61 100 Room Air 11/23/23 08:50 71 16 134/74 99 Room Air 11/23/23 08:40 84 16 131/72 100 Room Air 11/23/23 08:36 97 F 68 16 97/50 L 100 Simple Mask 6 11/23/23 07:06 97.6 F 51 15 149/78 H 100 Room Air Anesthesia: Monitored Mental Status: Awake Pain Control: Satisfactory Nausea/Vomiting: None Hydration: Adequate Anesthesia-Related Issues: No Anes. Related Issues
--- NOTE | 2023-11-24 12:05 | OP_ITS ---
DATE OF SERVICE: 11/23/2023 SURGEON: Marcos Wilson MD INDICATIONS: The patient presents for evaluation of colorectal cancer screening and family history of colorectal cancer. Full consent has been obtained from her for this, including risks of bleeding and perforation. PREOPERATIVE DIAGNOSIS: POSTOPERATIVE DIAGNOSIS: PROCEDURE PERFORMED: Colonoscopy to the cecum and terminal ileum with hot snare polypectomy x 2. ESTIMATED BLOOD LOSS: COMPLICATIONS: ANESTHESIA: Monitored anesthesia care. ASSISTANTS: SPECIMENS: PREOPERATIVE DIAGNOSES: Colorectal cancer screening and family history of colon cancer. POSTOPERATIVE DIAGNOSES: Colorectal cancer screening, family history of colon cancer, colon polyps, diverticulosis, and internal hemorrhoids. DESCRIPTION OF PROCEDURE: The patient was placed in the left lateral decubitus position. The digital rectal exam revealed no abnormalities. The Olympus video pediatric colonoscope was then entered into the rectum and advanced easily to the cecum. Once in the cecum, I did identify cecal pouch with appendiceal orifice and a normal-appearing ileocecal valve after some irrigation and suctioning. The terminal ileum was cannulated and appeared normal. The scope was withdrawn back in the colon. The entire cecum and ileocecal valve were well visualized and appeared normal. The scope was then slowly withdrawn assessing all mucosal surfaces carefully. For the most part, preparation was very good throughout the colon, but there were some areas with some liquid stool, which were irrigated and suctioned as best as possible. The great majority of the colon was well visualized. In the ascending colon, were 2 grossly adenomatous polyps. One was approximately 10 to 12 mm in diameter and was removed by hot snare polypectomy and recovered by suction. The other polyp just adjacent to it was approximately 6 to 8 mm in size and also removed by hot snare polypectomy and recovered by suction. Both polypectomy sites appeared clean, without any sign of residual polyp nor bleeding. I did not visualize any other polyps, colitis, or angiodysplasia. There was a mild amount of sigmoid diverticulosis. In the rectum, scope was retroflexed visualizing internal hemorrhoids, but no other pathology. The rectal mucosa appeared normal. The scope was straightened and withdrawn from the patient. She tolerated the procedure well and was returned to the recovery area in stable condition. IMPRESSION: 1. Colon polyps. 2. Diverticulosis. 3. Internal hemorrhoids. PLAN: Given today's findings, her family history, and the mildly limited prep in different parts of the colon, I would recommend a repeat colonoscopy in 3 years, rather than 5 years, for further screening and surveillance. She was advised not to use any aspirin and NSAIDs for 1 week. She will, otherwise, see me on a p.r.n. basis. MD BINA Smith/DILLAN / [id number] MTDD
== END 2023-11-23 09:51 | disposition home or self-care (01) ==
PROVIDERS: PCP Internal Medicine; Visit Provider Internal Medicine
PROC: 0DJD8ZZ Inspection of Lower Intestinal Tract, Via Natural or Artificial Opening Endoscopic (ICD-10-PCS; CPT 45378; principal; 2023-11-23 07:30)
DX: Z12.11 Encounter for screening for malignant neoplasm of colon (principal); Z80.0 Family history of malignant neoplasm of digestive organs; D12.2 Benign neoplasm of ascending colon; K57.30 Diverticulosis of large intestine without perforation or abscess without bleeding; K64.8 Other hemorrhoids; I10 Essential (primary) hypertension; E11.9 Type 2 diabetes mellitus without complications; J45.20 Mild intermittent asthma, uncomplicated; G25.81 Restless legs syndrome; L65.9 Nonscarring hair loss, unspecified; Z79.899 Other long term (current) drug therapy; Z91.040 Latex allergy status; Z91.018 Allergy to other foods; Z98.890 Other specified postprocedural states
CPT/HCPCS: 45385; 88305; J2704

== ENCOUNTER 2024-01-18 12:26 | Outpatient (AMB) | payer OTHER, SELFPAY ==
--- NOTE | 2024-01-18 12:29 | MHC.PC.OV ---
Vital Signs 01/18/24 12:36 Height 5 ft 7 in Weight 155 lb BMI 24.3 BP 124/80 Blood Pressure Location Lt brachial Position Sitting Pulse 60 Pulse Source Pulse Oximeter Pulse Oximetry (%) 100 Oxygen Delivery Method Room Air Intake Visit Reasons: PE Intake Note: Pt is here today for her PE Allergies latex [Latex] Allergy (Mild, Verified 01/18/24 13:11) RASH avocado [AVOCADO] Allergy (Unknown, Verified 01/18/24 13:11) NAUSEA kim [KIM] Allergy (Unknown, Verified 01/18/24 13:11) BOILS walnut [WALNUT] Allergy (Unknown, Verified 01/18/24 13:11) ITCHY Medication List - Last Reconciled 01/18/24 by Ksenia Bergeron MD albuterol sulfate 90 mcg/actuation 2 puffs inhalation Q6H PRN amoxicillin 2,000 mg (4 x 500 mg) PO ONCE clonidine HCl 0.1 mg PO BEDTIME finasteride 5 mg PO DAILY gabapentin 100 mg PO Q8H lidocaine 5% 1 patch topical DAILY minoxidil 2.5 mg PO DAILY mometasone-formoterol 200-5 mcg/actuation (Dulera) 2 puffs inhalation Q12H montelukast 10 mg PO QPM PRN pramipexole 0.5 mg PO BEDTIME spironolactone 50 mg PO BID 90 days Tobacco use date assessed: 01/18/24 Dental Screening Dental Screen Date: 01/18/24 Did you have a dental visit in the last 12 months?: Yes Did you have a dental problem in the last 6 months where you did not have access to dental care?: No Was dental information given to patient?: Patient has dentist HPI PE HPI Details 58 year-old lady here today for her physical exam. She is up-to-date with her screening mammogram due again later this year, sees Dr. Newton for her routine Pap and pelvic exam, which is currently up to date. Last screening colonoscopy was done in [address] Wilson with tubular adenoma removed , to be repeated again in 2028. She had bone density scan done in 2019 which showed normal findings. She is up-to-date with her Tdap and shingles vaccine, has had her COVID vaccines but did not get the booster as she developed recurrent cold sores, and had shingles after getting the shots,leery of getting the booster. Also does not want to get her pneumonia vaccine at present time. She has restless leg controlled with taking pramipexole, has hypertension stable controlled on spironolactone, clonidine. She has mild intermittent asthma currently on Dulera and as needed albuterol. She takes finasteride and minoxidil prescribed by her doctor in [place], for thinning hair which has been helping. [facility] Medical History (Updated 01/18/24 @ 13:10 by Ksenia Bergeron MD) Hair thinning Adhesive capsulitis of left shoulder Family history of colon cancer Restless leg syndrome Thoracic radiculitis Unspecified lump in the right breast, upper outer quadrant Recurrent cold sores Mild intermittent asthma in adult without complication PDA (patent ductus arteriosus) PVC (premature ventricular contraction) Intermittent palpitations Menopause HTN (hypertension) Surgical History (Updated 04/26/24 @ 00:02 by Ksenia Bergeron MD) History of cranial surgery H/O colonoscopy S/P cardiac cath (~09/2020) S/P PDA repair Family History (Updated 04/25/24 @ 23:54 by Ksenia Bergeron MD) Father HTN (hypertension) Diabetes CAD (coronary artery disease) Mother Cancer Brother Mental health disorder Sister Colon cancer Social History Housing: House Patient Tobacco Use Status: Never used Tobacco e-Cigarette/Vaping Use: Never Used service: No Current occupational status: employed Cognitive needs: No Hearing needs: No Vision needs: Yes Questionnaire PHQ-9 Over the last 2 weeks, how often have you been bothered by any of the following problems? 1. Little interest or pleasure in doing things: not at all 2. Feeling down, depressed, or hopeless: not at all 3. Trouble falling or staying asleep, or sleeping too much: not at all 4. Feeling tired or having little energy: not at all 5. Poor appetite or overeating: not at all 6. Feeling bad about yourself - or that you are a failure or have let yourself or your family down: not at all 7. Trouble concentrating on things, such as reading the newspaper or watching television: not at all 8. Moving or speaking so slowly that other people could have noticed. Or the opposite - being so fidgety or restless that you have been moving around a lot more than usual: not at all 9. Thoughts that you would be better off or of hurting yourself in some way: not at all Total score: 0 Depression Screening Interpretation: Negative Depression Screening Done: Yes [id number] - PHQ-9 Billing: Yes Source: Developed by Drs. Marcos Sanchez, Deepthi Acevedo, Shaggy Soni and colleagues, with an educational enmanuel from [email or web address]. Thrive Questionnaire Date Thrive assessed: 01/18/24 I am a: Patient What is your living situation today?: I have a steady place to live Within the past 12 months, did the food you bought not last and you didn't have the money to get more?: Never true Within the past 12 months, did you worry whether your food would run out before you got money to buy more?: Never true Do you have trouble paying for medicines?: No Do you have trouble getting transportation to medical appointments?: No Do you have trouble paying your heating and electricity bill?: No Do you have trouble taking care of your child, family member or friend?: No Do you have trouble with day-to-day activities such as bathing, preparing meals, shopping, managing finances, etc.?: No Are you currently unemployed and looking for a job?: No Are you interested in more education?: No Please select the resources that you would like help with: None THRIVE Score: 0 AUDIT C Alcohol Use Questionnaire (AUDIT-C) 1. How often do you have a drink containing alcohol?: Never 3. How often do you have six or more drinks on one occasion?: Never Total Score: 0 AMALIA-7 AMB Questionnaire AMALIA-7 Date AMALIA - 7 assessed: 01/18/24 Feeling nervous, anxious, or on edge: 0 = Not at all Not being able to stop or control worryin = Not at all Worrying too much about different things: 0 = Not at all Trouble relaxin = Not at all Being so restless that it is hard to sit still: 0 = Not at all Becoming easily annoyed or irritable: 0 = Not at all Feeling afraid as if something awful might happen: 0 = Not at all Total AMALIA-7 score (0-4 normal; 5-9 mild; 10-14 moderate; 15-21 severe): 0 Source: Developed by Drs. Marcos Sanchez, Deepthi Acevedo, Shaggy Soni and colleagues, with an educational enmanuel from [email or web address]. AMALIA-7 Assessment Billing AMALIA-7 Assessment Tool: AMALIA-7 Assessment 45781 Review of Systems Const Denies daytime sleepiness, Denies fatigue, Denies fever(s), Denies headache(s) and Denies weakness Eyes Details: was being seen at [facility] in [place] Denies change in vision, Denies eye discharge, Denies itchy eyes and Reports requires corrective lenses ENT Reports Normal hearing present, Denies dizziness, Denies headache(s), Denies mouth lesions, Denies nasal congestion, Denies nasal discharge and Denies sore throat Card Denies chest pain, Denies lightheadedness, Denies palpitations and Denies dyspnea Resp Denies chest congestion, Denies cough, Denies dyspnea and Denies wheezing GI Denies abdominal pain, Denies change in bowel habits and Denies heartburn Denies hematuria, Denies urinary frequency, Denies dysuria and Denies urinary urgency Musc Reports as per HPI Skin/Breast Denies breast pain, Denies breast mass, Denies lesions and Denies rash Neuro Reports Normal hearing present, Denies dizziness, Denies headache(s) and Denies weakness Psych Reports no additional complaints Endo Denies fatigue, Denies polydipsia, Denies polyuria and Denies palpitations Cahn/Lymph Denies easy bruising Aller/Immun Denies itchy eyes, Denies seasonal rhinorrhea and Denies wheezing Physical exam (Primary Care) Vital Signs: Last Vital Signs Pulse 60 01/18/24 12:36 BP 124/80 01/18/24 12:36 Pulse Ox 100 01/18/24 12:36 Oxygen Delivery Method Room Air 01/18/24 12:36 BMI result Body Mass Index 24.3 Tobacco/Smoking Status: Tobacco use Status Tobacco use date assessed 01/18/24 01/18/24 12:31 Patient Tobacco Use Status Never used Tobacco 01/18/24 12:31 e-Cigarette/Vaping Use Never Used 01/18/24 12:31 PHQ-9: PHQ-9 Score PHQ-9: Total score 0 01/18/24 13:40 Depression Screening Interpretation: Negative Thrive Assessment: Date of Thrive Assessment Date Thrive assessed 01/18/24 01/18/24 12:31 Const Other: Alert oriented x3, no acute cardiorespiratory distress noted, ambulatory with normal gait Orientation/consciousness: patient oriented x3 [facility] Head: Yes normocephalic and Yes atraumatic Ears: hearing grossly normal bilaterally, external ears normal, TM's normal bilaterally and EAC's normal General nose exam: Normal external nose present Face and sinus: Yes face symmetric Mouth: Normal oral and palatal mucosa present, tongue normal, oropharynx normal and moist mucous membranes Eyes General: appearance normal, both eyes and all related structures Neck Neck: Yes full ROM, Yes no lymphadenopathy and Yes supple Thyroid: Thyroid normal (Nonpalpable) Resp Effort & Inspection: normal respiratory effort and able to speak in complete sentences Auscultation: clear to auscultation bilaterally Cardio Rate: regular rate Rhythm: regular rhythm Heart sounds: S1 normal heart sound present and S2 normal heart sound present GI Palpation (GI): Soft to palpation, nontender, no guarding and no masses Auscultation: normal bowel sounds Other: Goes to [facility] for her routine Pap and pelvic exam, currently up-to-date Back/Spine/Pelvis Thoracic/Lumbar Spine: straight leg raise negative bilaterally and paraspinal muscle tenderness on the left Skin General skin exam: no rashes or lesions noted Neuro General: patient oriented x3, gait normal, tone normal, moves all extremities (Except for left shoulder joint), Normal light touch and pain sensation, no focal motor deficits and CN's II-XI intact bilaterally Cranial nerves: Yes Normal hearing present Extrem Other: Full range of motion in all extremities except for the left shoulder Psych Appearance: grossly normal Mental Status: mental status grossly normal Speech and movement: Normal speech and movement present Affect: normal affect Attitude: cooperative Results Reviewed Results Reviewed: Laboratory Tests 10/16/23 07:40 WBC 5.2 Hgb 13.9 Hct 43.4 RDW 13.1 Plt Count 238 Name: Saleem Holley Age/Sex: 57/F : 1965 Unit#: [id number] Attend Dr: Ksenia Bergeron MD Re10/16/23 Status: DEP REF Location: [facility] Disch: SPEC : [id number] ANNIE: 10/16/23 STATUS: COMP REQ : [id number] RECD: 10/16/23-[address]: Ksenia Bergeron MD COMP: 10/16/23-1115 ENTERED: 10/16/23-[address]: ORDERED: CMP Fast, Lipid Panel, Vitamin D 25-OH Test Result Flag Reference Sodium 138 135-145 mmol/L Potassium 3.7 3.3-5.1 mmol/L CL 102 96-108 mmol/L CO2 30 H 22-29 mmol/L Gap 10 L 12-20 BUN 10 9-16 mg/dL Creat 0.75 0.5-1.4 mg/dL EGFR > 60 NOTE: For -Citizen Of [place] individuals, multiply the result by 1.210. Chronic Kidney Disease: Estimated GFR < 60 mL/min/1.73m2 Severe Kidney Disease: Estimated GFR < 15 mL/min/1.73m2 FBS 100 H 60-99 mg/dL A fasting glucose from 100-125 mg/dl is considered impaired (pre-diabetes). CA 9.9 8.4-10.2 mg/dL Total Bili 0.6 0.0-1.0 mg/dL AST (GOT) 18 5-31 U/L ALT (GPT) 15 0-31 U/L Protein, Total 7.3 6.5-8.0 g/dL Alb 4.3 3.5-5.0 g/dL Triglyceride 60 <150 mg/dL Desirable Triglyceride: less than 150 mg/dL Borderline High Triglyceride 150-199 mg/dL High Triglyceride: 200-499 mg/dL Very High Triglyceride: greater than or equal to 5OO mg/dL Cholesterol 179 <200 mg/dL Desirable Cholesterol: less than 200 mg/dL Borderline High Cholesterol: 200-239 mg/dL High Cholesterol: greater than 239 mg/dL LDL Calculated 103 H <100 mg/dL Desirable LDL: less than 100 mg/dL Near Optimal/Above Optimal LDL: 110-129 mg/dL Borderline High LDL: 130-159 mg/dL High LDL: 160-189 mg/dL Very High LDL: greater than or equal to 190 mg/dL HDL 64 >40 mg/dL Desirable HDL: greater than 40 mg/dL Note: This HDL assay may give artificially low results in patients with liver disease. Alk Phos 50 39-117 U/L Vit D 25-OH Tot 41.5 >30 ng/mL Health Based Reference Values* < 20 ng/mL Deficient 20-30 ng/mL Insufficient > 30 ng/mL Sufficient Assessment and Plan Assessment & Plan (1) Annual visit for general adult medical examination with abnormal findings: Code(s): Z00.01 - Encounter for general adult medical examination with abnormal findings Plan: She is up-to-date with her mammogram and cervical cancer screening, sees DR Mccarthy . Up-to-date with her screening colonoscopy, and already had a bone density scan which came back within normal limits. She is up-to-date with her vaccinations but does not want to get a COVID booster due to an adverse reaction from the previous shot. Declines pneumonia vaccine to be given at present time. 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 Also taking montelukast 10 mg daily (6) HTN (hypertension): Code(s): I10 - Essential (primary) hypertension Plan: Blood pressure at goal of less than 130/80. Continue with current medication. Reinforced importance of following a low sodium diet, getting regular exercise, and lowering stress levels. (7) Neuralgia of groin: Code(s): M79.2 - Neuralgia and neuritis, unspecified Plan: Prescription sent for gabapentin 100 mg to take 1 every 8 hours (8) S/P PDA repair: Code(s): Z87.74 - Personal history of (corrected) congenital malformations of heart and circulatory system Plan: amoxicillin take 2g 30-60 minutes prior to dental procedure. Medications: New gabapentin 100 mg PO Q8H 180 caps 4RF montelukast 10 mg PO QPM PRN 90 tabs 3RF Allergy Symptoms Changed From clonidine HCl 0.1 mg PO BID 90 days 180 tabs 3RF To clonidine HCl 0.1 mg PO BEDTIME From albuterol sulfate 90 mcg/actuation 2 puffs inhalation Q6H PRN 8.5 grams 3RF shortness of breath or wheezing To albuterol sulfate 90 mcg/actuation 2 puffs inhalation Q6H PRN 8.5 grams 3RF shortness of breath or wheezing From amoxicillin take 2g 30-60 minutes prior to dental procedure. 2,000 mg (4 x 500 mg) PO ONCE 4 caps 0RF To amoxicillin take 2g 30-60 minutes prior to dental procedure. 2,000 mg (4 x 500 mg) PO ONCE 4 caps 3RF From mometasone-formoterol 200-5 mcg/actuation 2 puffs inhalation Q12H 13 grams 8RF J45.20 - Mild intermittent asthma, uncomplicated To mometasone-formoterol 200-5 mcg/actuation (Dulera) 2 puffs inhalation Q12H 3 multiple units 4RF 3 months J45.20 - Mild intermittent asthma, uncomplicated Refilled minoxidil 2.5 mg PO DAILY 90 tabs 3RF pramipexole 0.5 mg PO BEDTIME 90 tabs 3RF finasteride 5 mg PO DAILY 90 tabs 3RF spironolactone 50 mg PO BID 180 tabs 3RF 90 days Coding Level of Care Code Est Pt Prev Care 40-64y(40963) Diagnoses Annual visit for general adult medical examination with abnormal findings Z00.01 Hair thinning L65.9 Restless leg syndrome G25.81 Recurrent cold sores B00.1 Mild intermittent asthma in adult without complication J45.20 HTN (hypertension) I10 Neuralgia of groin M79.2 S/P PDA repair Z87.74 Additional Codes AMALIA-7 Assessment Billing - AMALIA-7 Assessment Tool: AMALIA-7 Assessment 88444 ([id number])
[2024-01-18 12:36] VITALS: BP 124/80; PULSE 60; O2SAT 100; BMI 24.3
== END 2024-01-18 13:59 | disposition home or self-care (01) ==
PROVIDERS: PCP Internal Medicine; Visit Provider Internal Medicine
DX: Z00.01 Encounter for general adult medical examination with abnormal findings (principal); L65.9 Nonscarring hair loss, unspecified; G25.81 Restless legs syndrome; B00.1 Herpesviral vesicular dermatitis; J45.20 Mild intermittent asthma, uncomplicated; I10 Essential (primary) hypertension; M79.2 Neuralgia and neuritis, unspecified; Z87.74 Personal history of (corrected) congenital malformations of heart and circulatory system
CPT/HCPCS: 99396

== ENCOUNTER 2024-04-26 15:10 | Outpatient (AMB) | payer OTHER, SELFPAY ==
--- NOTE | 2024-04-26 15:17 | AM.OFFVISNUR ---
Intake Visit Reasons: flu vaccine Allergies latex [Latex] Allergy (Mild, Verified 01/18/24 13:11) RASH avocado [AVOCADO] Allergy (Unknown, Verified 01/18/24 13:11) NAUSEA kim [KIM] Allergy (Unknown, Verified 01/18/24 13:11) BOILS walnut [WALNUT] Allergy (Unknown, Verified 01/18/24 13:11) ITCHY Office Procedures Flu Questionnaire Does the patient have a severe egg allergy?: No Does the patient have severe life threatening allergies?: No Does the patient have a fever or illness today?: No Has the patient ever had Guillain-Danforth Syndrome?: No Has the patient ever had any past reaction to a flu shot?: No Assessment & Plan Assessment & Plan Orders: Orders Influenza [id number] Immunization Today Z23 - Encounter for immunization Medications: New Fluarix Triv [id number] (PF) (flu vacc [id number] 6mos up(PF)) 0.5 mL IM ONCE 0.5 mL 0RF NS Z23 - Encounter for immunization
== END 2024-04-26 15:10 | disposition home or self-care (01) ==
LOC: HO.HMCC 15:10
PROVIDERS: PCP Internal Medicine; Visit Provider Internal Medicine
DX: Z23 Encounter for immunization (principal)

== ENCOUNTER → 2024-04-26 15:10 | Outpatient (BNVA) | payer OTHER, SELFPAY | PROVIDERS: PCP Internal Medicine; Visit Provider Internal Medicine | DX: Z23 Encounter for immunization (principal) | CPT/HCPCS: 90471; 90656 ==

== ENCOUNTER 2025-01-03 08:15 | Outpatient (REF) | payer OTHER, SELFPAY ==
--- NOTE | ~2025-01-03 | XR_ITS ---
EXAMINATION: XR CHEST 2 VIEWS HISTORY: J20.9 - Acute bronchitis, unspecified COMPARISON: Comparison is made with the prior examination dated 05/31/2010. FINDINGS: PA and lateral views of the chest are submitted. The lungs are expanded and clear. There is no pleural effusion, pneumothorax, or pulmonary vascular congestion. The heart is normal in size. The bones are intact. There is pectus excavatum. XR/XR chest 2V IMPRESSION: No acute cardiopulmonary abnormality. Electronically signed by: Marcos Gupta MD 01/03/2025 08:55 AM EDT
--- OUTSIDE RECORDS SUMMARY | 2025-01-03 08:25 | XMS_ITS | Patient Health Record ---
Author Organization [facility] Address [address] [place] [address] Care Team Providers Care Pigs Feet Finisher Name Role Phone Ksenia Bergeron MD Primary Care Provider Marcos Davila Unavailable [phone] Allergies Allergen (clinical drug ingredient) Drug/Non Drug Allergy documented on EMR Reaction Allergy Type Onset Date Status Livan Passion Fruit OS boils Drug Allergy Active Avocado Avocado nausea Allergy Active Latex Latex rash Allergy Active walnut (uncoded) itchy Allergy Act yvonne Reason For Referral No Information Medications Medication SIG (Take, Route, Frequency, Duration) Notes Start Date End Date Status Vitamin D Active Dulera 200-5 MCG/ACT Inhalation for 30 Active Gabapentin 100 MG Oral for 30 Active Montelukast Sodium 10 MG Oral for 30 Active Minoxidil 2.5 MG Oral for 90 A ctive Finasteride 5 MG Oral for 90 A ctive Spironolactone 50 MG Oral for 90 Active Pramipexole Dihydrochloride 0.5 MG Oral for 30 Active cloNIDine HCl 0.1 MG Oral for 90 Active Social History Tobacco Use: Social History Observation Description Date Details (start date - stop date) Never Smoker NA - NA Tobacco Use/Smoking Question Answer Notes Patient is a nonsmoker Alcohol Screen Question Answer Notes Did you have a drink containing alcohol in the p ast year? No Points 0 Interpretation Negative Section Notes: She does not smoke nor use a ny alcohol Problems Problem Type SNOMED Code ICD Code Onset Dates Problem Status W/U Status Risk Notes Problem [id number] Colon cancer screening (Z12.11) Active confirmed Problem Diverticular disease of colon (193286714) Diverticulosis of large intestine without perforation or abscess without bleeding (K57.30) Active confirmed Problem [id number] Preprocedural examination (Z01.818) Active confirmed Problem [id number] Family history o f colon cancer (Z80.0) Active confirmed Plan Of Treatment Future Test Test Name Order Date COLONOSCOPY 08/06/2023 Insurance Providers Payer Name Payer Address Payer Phone Subscriber Number Group Number Insured Name Patient Relationship to Insured Coverage Start Date Coverage End Date [employer] [place] [address] [address] [place] [address] [id number] 2 [place] Self - patient is the insured Medical (General) History Medical History History ICD Code Asthma Hypertension Restless leg syndrome Negative cardiac catheterization She is on minoxidil and finasteride for hair loss related to hormones Diet-controlled diabetes Denies NE,CVA,renal disease Negative screening colonoscopy in approx imately [address] Prince Surgical History Surgery Date(Month/Year) S/P Patent ductus arteriosus repair age 23 Scalp osteoma
== END 2025-01-03 08:16 | disposition home or self-care (01) ==
LOC: HO.HMGCX 08:15
PROVIDERS: Visit Provider Internal Medicine
DX: J20.9 Acute bronchitis, unspecified (principal)
CPT/HCPCS: 71046

== ENCOUNTER → 2025-01-03 08:37 | Outpatient (BNV) | payer OTHER, SELFPAY | PROVIDERS: Visit Provider Radiology Diagnostic Radiology | DX: J20.9 Acute bronchitis, unspecified (principal) | CPT/HCPCS: 71046 ==

== ENCOUNTER 2025-01-24 13:34 | Outpatient (AMB) | payer OTHER, SELFPAY ==
--- NOTE | 2025-01-24 13:42 | MHC.PC.OV ---
"Vital Signs 01/24/25 13:43 Height 5 ft 7 in Weight 155 lb BMI 24.3 BP 124/82 Blood Pressure Location Lt brachial Position Sitting Respiration 16 Pulse 60 Pulse Source Pulse Oximeter Pulse Oximetry (%) 100 Oxygen Delivery Method Room Air Intake Visit Reasons: f/u Allergies latex (Latex) Allergy (Mild, Verified 01/18/24 13:11) RASH avocado (AVOCADO) Allergy (Unknown, Verified 01/18/24 13:11) NAUSEA kim (KIM) Allergy (Unknown, Verified 01/18/24 13:11) BOILS walnut (WALNUT) Allergy (Unknown, Verified 01/18/24 13:11) ITCHY Medication List - Last Reconciled 01/30/25 by Ksenia Bergeron MD albuterol sulfate 90 mcg/actuation 2 puffs inhalation Q6H PRN amoxicillin 2,000 mg PO ONCE budesonide-formoterol 160-4.5 mcg/actuation (Symbicort) 2 inhalations inhalation BID clonidine HCl 0.1 mg PO BEDTIME finasteride 5 mg PO DAILY gabapentin 100 mg PO Q8H levofloxacin 750 mg PO DAILY 10 days minoxidil 2.5 mg PO DAILY montelukast 10 mg PO QPM PRN pramipexole 0.5 mg PO BEDTIME prednisone 10 mg PO DIRECTED spironolactone 50 mg PO BID 90 days Tobacco use date assessed: 01/18/24 Dental Screening Dental Screen Date: 01/18/24 HPI f/u HPI Details 59-year-old lady with history PDA repair, presents today complaining of worsening appearance of varicosities in her left upper chest extending to left upper arm up to her antecubital fossa . Patient states that her left arm feels very tingling and occasionally gets numb whenever she lets it [place] for extended periods of time. He also has some difficulty with bending her left elbow at times. She also has been experiencing progressive shortness of breath especially on walking up an incline. This has been ongoing now for the last 5 years and seems to be getting worse. [facility] Medical History (Updated 01/24/25 @ 13:51 by Ksenia Bergeron MD) Shortness of breath on exertion Varicose veins of left upper extremity Hair thinning Adhesive capsulitis of left shoulder Family history of colon cancer Restless leg syndrome Thoracic radiculitis Unspecified lump in the right breast, upper outer quadrant Recurrent cold sores Mild intermittent asthma in adult without complication PDA (patent ductus arteriosus) PVC (premature ventricular contraction) Intermittent palpitations Menopause HTN (hypertension) Surgical History History of cranial surgery H/O colonoscopy S/P cardiac cath (~09/2020) S/P PDA repair Family History Father HTN (hypertension) Diabetes CAD (coronary artery disease) Mother Cancer Brother Mental health disorder Sister Colon cancer Social History Housing: House Patient Tobacco Use Status: Never used Tobacco e-Cigarette/Vaping Use: Never Used service: No Current occupational status: employed Cognitive needs: No Hearing needs: No Vision needs: Yes Questionnaire PHQ-9 Over the last 2 weeks, how often have you been bothered by any of the following problems? Depression Screening Interpretation: Negative Depression Screening Done: Yes Source: Developed by Drs. Marcos Sanchez, Deepthi Acevedo, Shaggy Soni and colleagues, with an educational enmanuel from [employer] | [employer]. Thrive Questionnaire Date Thrive assessed: 01/18/24 AMALIA-7 AMB Questionnaire AMALIA-7 Date AMALIA - 7 assessed: 01/18/24 Source: Developed by Drs. Marcos Sanchez, Deepthi Acevedo, Shaggy Soni and colleagues, with an educational enmanuel from [employer] | [employer]. Review of Systems Const All systems reviewed & are unremarkable except as noted in HPI and below ENT Reports Normal hearing present Card Denies chest pain at rest, Denies chest pain with activity, Denies irregular heart rhythm and Denies lightheadedness Resp Reports as per HPI GI Reports no additional complaints Musc Reports as per HPI Skin/Breast Denies rash Neuro Reports no additional complaints and Reports Normal hearing present Physical exam (Primary Care) Vital Signs: Last Vital Signs Pulse 60 01/24/25 13:43 Resp 16 01/24/25 13:43 BP 124/82 01/24/25 13:43 Pulse Ox 100 01/24/25 13:43 Oxygen Delivery Method Room Air 01/24/25 13:43 BMI result Body Mass Index 24.3 Tobacco/Smoking Status: Tobacco use Status Tobacco use date assessed 01/18/24 01/24/25 13:44 Patient Tobacco Use Status Never used Tobacco 01/24/25 13:44 e-Cigarette/Vaping Use Never Used 01/24/25 13:44 Depression Screening Interpretation: Negative Thrive Assessment: Date of Thrive Assessment Date Thrive assessed 01/18/24 01/24/25 13:44 Const Other: Alert oriented x3, no acute cardiorespiratory distress noted, ambulatory with normal gait HENMT Face and sinus: Yes face symmetric Neck Neck: Yes full ROM, Yes no lymphadenopathy and Yes supple Resp Effort & Inspection: normal respiratory effort and able to speak in complete sentences Auscultation: clear to auscultation bilaterally Cardio Rate: regular rate Rhythm: regular rhythm Heart sounds: S1 normal heart sound present and S2 normal heart sound present Skin Other: Superficial varicosities noted extending from left upper to antecubital fossa General skin exam: no rashes or lesions noted Neuro General: gait normal, tone normal, moves all extremities (Except for left shoulder joint), Normal light touch and pain sensation, no focal motor deficits and CN's II-XI intact bilaterally Cranial nerves: Yes Normal hearing present Extrem Other: Full range of motion in all extremities except for the left shoulder Coding Level of Care Code Est Pt Level 4 (55989) Diagnoses Varicose veins of left upper extremity I86.8 Shortness of breath on exertion R06.02 Assessment & Plan Assessment & Plan (1) Varicose veins of left upper extremity: Code(s): I86.8 - Varicose veins of other specified sites Category: Medical (2) Shortness of breath on exertion: Code(s): R06.02 - Shortness of breath Category: Medical Plan Ultrasound venous duplex extremity on the left ordered. If negative will order either CTA or MRA of left upper extremity Orders: Orders US venous duplex UE LT 01/26/25 I86.8 - Varicose veins of other specified sites, R06.02 - Shortness of breath, Z87.74 - Personal history of (corrected) congenital malformations of heart and circulatory system"
[2025-01-24 13:43] VITALS: BP 124/82; PULSE 60; RESP 16; O2SAT 100; BMI 24.3
--- OUTSIDE RECORDS SUMMARY | 2025-01-24 14:42 | XMS_ITS | Patient Health Record ---
Author Organization [facility] Address [address] [place] [address] Care Team Providers Care Cardroom Worker Name Role Phone Ksenia Bergeron MD Primary Care Provider Marcos Davila Unavailable [phone] Allergies Allergen (clinical drug ingredient) Drug/Non Drug [...] Problem Status W/U Status Risk Notes Problem 645962033 Colon cancer screening (Z12.11) Active confirmed Problem Diverticulosis o f large intestine without perforation or abscess without bleeding (K57.30) Active confirmed Problem 289600568422977 Preprocedural examination (Z01.818) Active confirmed Problem 770338938 Family history o f colon cancer (Z80.0) Active confirmed Plan Of Treatment Future Test Test Name Order Date COLONOSCOPY 08/06/2023 Insurance Providers Payer Name Payer Address Payer Phone Subscriber Number Group Number Insured Name Patient Relationship to Insured Coverage Start Date Coverage End Date [employer] OF [place] [address] [address] [place] [address] [id number] FRANCESCAGLORIA Self - patient is the insured Medical (General) History Medical History History ICD Code Asthma Hypertension Restless leg syndrome Negative cardiac catheterization She is on minoxidil and finasteride for hair loss related to hormones Diet-controlled diabetes Denies [place],CVA,renal disease Negative screening colonoscopy in approx imately [address] Prince Surgical History Surgery Date(Month/Year) S/P Patent ductus arteriosus repair age 23 Scalp osteoma
== END 2025-01-24 13:42 | disposition home or self-care (01) ==
LOC: HO.HMCC 13:34
PROVIDERS: PCP Internal Medicine; Visit Provider Internal Medicine
DX: I86.8 Varicose veins of other specified sites (principal); R06.02 Shortness of breath

== ENCOUNTER 2025-01-26 14:26 | Outpatient (REF) | payer OTHER, SELFPAY ==
--- NOTE | ~2025-01-26 | US_ITS ---
EXAMINATION: US TRIPLEX UPPER EXTREMITY, LEFT CLINICAL INFORMATION: Varices. COMPARISON: None available. TECHNIQUE: Color-flow triplex imaging with spectral analysis and compression Doppler was performed on the left upper extremity. FINDINGS: The left internal jugular, subclavian, and axillary veins demonstrated normal phasic flow and augmentation. The imaged segment of the left brachial, basilic, radial and ulnar vein demonstrated normal spectral Doppler waveforms and compressible. Left cephalic vein is not identified. US/US venous duplex UE LT IMPRESSION: No acute deep venous thrombosis interrogated veins, left upper extremity. Negative for DVT. Electronically signed by: Steve Shaw MD 01/26/2025 03:07 PM EDT
--- OUTSIDE RECORDS SUMMARY | 2025-01-26 14:29 | XMS_ITS | Patient Health Record ---
Author Organization [facility] Address [address] [place] [address] Care Team Providers Care Stock Preparation Operator Name Role Phone Ksenia Bergeron MD Primary Care Provider Marcos Davila Unavailable [phone] Allergies Allergen (clinical drug ingredient) Drug/Non Drug [...] Problem Status W/U Status Risk Notes Problem 174611070 Colon cancer screening (Z12.11) Active confirmed Problem Diverticulosis o f large intestine without perforation or abscess without bleeding (K57.30) Active confirmed Problem 797448464669630 Preprocedural examination (Z01.818) Active confirmed Problem 548554182 Family history o f colon cancer (Z80.0) Active confirmed Plan Of Treatment Future Test Test Name Order Date COLONOSCOPY 08/06/2023 Insurance Providers Payer Name Payer Address Payer Phone Subscriber Number Group Number Insured Name Patient Relationship to Insured Coverage Start Date Coverage End Date [employer] [place] [address] [address] [place] [address] [id number] FRANCESCAGLORIA Self - patient is the insured Medical (General) History Medical History History ICD Code Asthma Hypertension Restless leg syndrome Negative cardiac catheterization She is on minoxidil and finasteride for hair loss related to hormones Diet-controlled diabetes Denies [place],CVA,renal disease Negative screening colonoscopy in approx imately [address] Prince Surgical History Surgery Date(Month/Year) S/P Patent ductus arteriosus repair age 23 Scalp osteoma
== END 2025-01-26 14:27 | disposition home or self-care (01) ==
LOC: HO.HMGCX 14:26
PROVIDERS: PCP Internal Medicine; Visit Provider Internal Medicine
DX: R06.02 Shortness of breath (principal); Z87.74 Personal history of (corrected) congenital malformations of heart and circulatory system; I86.8 Varicose veins of other specified sites
CPT/HCPCS: 93971

== ENCOUNTER → 2025-01-26 14:29 | Outpatient (BNV) | payer OTHER, SELFPAY | PROVIDERS: PCP Internal Medicine; Visit Provider Radiology Diagnostic Radiology | DX: I86.8 Varicose veins of other specified sites (principal) | CPT/HCPCS: 93971 ==

== ENCOUNTER 2025-03-01 08:04 | Outpatient (REF) | payer OTHER, SELFPAY ==
[2025-03-01 10:38] LABS: Hemoglobin A1C 151.5794 umol/L; Total Hemoglobin (HGBA1C) 3743.7854 umol/L
[2025-03-01 10:50] LABS: Alanine Aminotransferase 31 U/L (0-31); Anion Gap 13 (12-20); Aspartate Amino Transferase 29 U/L (5-31); Blood Urea Nitrogen 9 mg/dL (9-16); Calcium 9.5 mg/dL (8.4-10.2); Carbon Dioxide 27 mmol/L (22-29); Chloride 102 mmol/L (96-108); Cholesterol 208 mg/dL (<200); Estimated Glomerular Filt Rate > 60; HDL Cholesterol 72 mg/dL (>40); Potassium 3.9 mmol/L (3.3-5.1); Sodium 138 mmol/L (135-145); Triglycerides 63 mg/dL (<150)
== END 2025-03-01 08:05 | disposition home or self-care (01) ==
LOC: HO.HMGCLDS 08:04
PROVIDERS: PCP Internal Medicine; Visit Provider Internal Medicine
DX: Z13.220 Encounter for screening for lipoid disorders (principal); Z13.1 Encounter for screening for diabetes mellitus; I10 Essential (primary) hypertension; G25.81 Restless legs syndrome; R06.02 Shortness of breath; Z78.0 Asymptomatic menopausal state; Z87.74 Personal history of (corrected) congenital malformations of heart and circulatory system
CPT/HCPCS: 36415; 80048; 80061; 82306; 83036; 84443; 84450; 84460

== ENCOUNTER 2025-03-06 08:20 | Outpatient (REF) | payer OTHER, SELFPAY ==
--- NOTE | ~2025-03-06 | CT_ITS ---
EXAMINATION: CT ANGIOGRAM CHEST CLINICAL INFORMATION: Varicose veins of left upper extremity with pain and swelling. COMPARISON: None available. TECHNIQUE: Multiple axial images were obtained through the chest after the administration of 65 mL of Omnipaque 350 intravenous contrast. Extensive vascular post-processing including two-dimensional and three-dimensional reformatted images were created and reviewed on an independent workstation. This CT examination was performed using dose optimization techniques as appropriate, variously including the following: *Automated exposure control *Adjustment of mA and/or kV according to patient size (this includes techniques or standardized protocols for targeted exams where dose is matched to indication/reason for exam; i.e. extremities or head) *Use of iterative reconstruction technique FINDINGS: VASCULAR: The thoracic aorta is of normal caliber without aneurysm or dissection. There is normal three-vessel branching of the arch. On coronal imaging there is very small nubbing along the inferior surface of the aortic arch on sagittal image 66/10 likely remnant of PDA. KV was reported as a child by the patient. There is no current communication revitalization of the channel between the aorta and pulmonary artery. The right brachiocephalic, right common carotid and right vertebral arteries are patent at their origins. The left common carotid artery of the arch is patent as well. The origin of left subclavian artery and left vertebral artery are widely patent. The left subclavian and the axillary artery appeared to be widely patent. There is moderate to high-grade narrowing involving the left subclavian vein best visualized on axial image 31/5 and sagittal image 51/10. There is a small flow-void defect/flow-void artifact secondary to high iodine contrast concentration on triplanar images . There is dilated proximal subclavian artery, proximal moderate collateral enlarged vessels extending into the left axilla, left neck and the left supraclavicular fossa. NONVASCULAR: Visualized thyroid lobes, trachea and the lung apices are clear. Both jugular veins are patent. The SVC is patent. There is pectus excavatum deformity resulting in mild transverse enlarged cardiac silhouette/ mild cardiomegaly. There is no pericardial effusion seen. The lungs are clear. No pleural effusion or thickening. No abnormal mediastinal lymph nodes. Visualized liver, adrenal glands and partially visualized upper kidneys are unremarkable. 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 Recommend vascular consultation. No abnormal vascular connection between the aorta and the pulmonary artery seen except for very small nubbing remnant from PDA. Pectus excavatum deformity of the chest. Lungs are clear. Fleischner guidelines were followed. Electronically signed by: Tito Shay MD 03/07/2025 07:39 AM EDT RP
--- OUTSIDE RECORDS SUMMARY | 2025-03-06 08:38 | XMS_ITS | Patient Health Record ---
Author Organization [facility] Address [address] [place] [address] Care Team Providers Care All Source Intelligence Name Role Phone Ksenia Bergeron MD Primary Care Provider Marcos Davila Unavailable [phone] Allergies Allergen (clinical drug ingredient) Drug/Non Drug Allergy documented on EMR Reaction Allergy Type Onset Date Status [employer] Fruit OS boils Drug Allergy Active [...] Problem Status W/U Status Risk Notes Problem 261659720 Colon cancer screening (Z12.11) Active confirmed Problem Diverticular disease of colon (444282643) Diverticulosis of large intestine without perforation or abscess without bleeding (K57.30) Active confirmed Problem [id number] Preprocedural examination (Z01.818) Active confirmed Problem 820382021 Family history o f colon cancer (Z80.0) Active confirmed Plan Of Treatment Future Test Test Name Order Date COLONOSCOPY 08/06/2023 Insurance Providers Payer Name Payer Address Payer Phone Subscriber Number Group Number Insured Name Patient Relationship to Insured Coverage Start Date Coverage End Date [employer]UE [employer] [place] [address] [address] [place] [address] [id number] 2 GLORIA [place] Self - patient is the insured Medical (General) History Medical History History ICD Code Asthma Hypertension Restless leg syndrome Negative cardiac catheterization She is on minoxidil and finasteride for hair loss related to hormones Diet-controlled diabetes Denies [place],CVA,renal disease Negative screening colonoscopy in approx imately [address] Prince Surgical History Surgery Date(Month/Year) S/P Patent ductus arteriosus repair age 23 Scalp osteoma
[2025-03-06] MEDS: iohexoL 350 MG/ML 100 ML INFUS..BTL 65 ML IV (09:28)
== END 2025-03-06 08:21 | disposition home or self-care (01) ==
LOC: HO.CT 08:20
PROVIDERS: PCP Internal Medicine; Visit Provider Internal Medicine
DX: I86.8 Varicose veins of other specified sites (principal); R06.02 Shortness of breath; M79.602 Pain in left arm; M79.89 Other specified soft tissue disorders
CPT/HCPCS: 71275; Q9967

== ENCOUNTER → 2025-03-06 08:21 | Outpatient (BNV) | payer OTHER, SELFPAY | PROVIDERS: PCP Internal Medicine; Visit Provider Radiology Diagnostic Radiology | DX: I86.8 Varicose veins of other specified sites (principal); M79.622 Pain in left upper arm; R22.32 Localized swelling, mass and lump, left upper limb; I87.1 Compression of vein | CPT/HCPCS: 71275 ==

== ENCOUNTER 2025-04-26 09:52 | Outpatient (AMB) | payer OTHER, SELFPAY ==
--- OUTSIDE RECORDS SUMMARY | 2023-11-23 03:30 | XMS_ITS ---
Author Organization [facility] Address [address] [place] [address] Care Team Providers Care Magnetic Resonance Imaging Coordinator Name Role Phone Elyssa GIBSON, Ksenia Primary Care Provider Marcos Davila Unavailable [phone] REASON FOR VISIT screening, fam hx colon ca Problems Problem Type SNOMED Code ICD Code Onset Dates Problem Status W/U Status Risk Notes Problem Diverticular disease of colon (667654455) Diverticulosis of large intestine without perforation or abscess without bleeding (K57.30) Active confirmed Encounters Encounter Location Date Provider Diagnosis [facility] [address], [place] [id number] 11/23/2023 Marcos Wilson Encounter for scre ening colonoscopy Z12.11 ; Colon polyps K63.5 ; Family history of colon cancer Z80.0 ; Diverticulosis of large intestine without perforation or abscess without bleeding K57.30 and Other hemorrhoids K64.8 Assessments Encounter Date Diagnosis (ICD Code) Assessment Notes Treatment Notes Treatment Clinical Notes Section Notes 11/23/2023 Encounter for screening colonoscopy (ICD-10 - Z12.11) 11/23/2023 Colon polyps (ICD-10 - K63.5) 11/23/2023 Family history of colon cancer (ICD-10 - Z80.0) 11/23/2023 Diverticulosis of large intestine without perforation or abscess without bleeding (ICD-10 - K57.30) 11/23/2023 Other hemorrhoids (ICD-10 - K64.8) Plan Of Treatment No Information Progress Notes * DEANNA MA:1965 ( 59 yo F)Acc No.[id number]:11/23/2023 COLON WITH MAC Patient: GLORIA CASTRO Provider: Ari Wilson MD :1965 A ge:58 Y S ex:Female Date:11/23/2023 Address: [address] [id number] Pcp:Ksenia Bergeron MD Subjective: * Chief Complaints: * 1 . Screening, fam hx colon ca. * Medical History: Objective: * Vitals: Assessment: * Assessment: 1. E ncounter for screening colonoscopy - Z12.11 (Primary) 2 . C olon polyps - K63.5 3 . F amily history of colon cancer - Z80.0 4 . D iverticulosis of large intestine without perforation or abscess without bleeding - K57.30 5 . O ther hemorrhoids - K64.8 Plan: * Treatment: * Procedure Codes: 4 5385 LESION REMOVAL COLONOSCOPY, Modifiers: 53 * * The named appointment provid er may or may not be the originator of this progress note, and it is not deemed complete until electronically signed by the appointment provider. Sign off status: Pending * Provider: Ari Wilson MD Date: 0 11/23/2023 Generated for Keila de jesus/Franc/Melaniaitting on: 1 10:51 AM EDT
--- NOTE | 2025-04-26 10:23 | AM.OFFVISNUR ---
Intake Visit Reasons: Flu shot Allergies latex (Latex) Allergy (Mild, Verified 01/18/24 13:11) RASH avocado (AVOCADO) Allergy (Unknown, Verified 01/18/24 13:11) NAUSEA kim (KIM) Allergy (Unknown, Verified 01/18/24 13:11) BOILS walnut (WALNUT) Allergy (Unknown, Verified 01/18/24 13:11) ITCHY Office Procedures Flu Questionnaire Does the patient have a severe egg allergy?: No Does the patient have severe life threatening allergies?: No Does the patient have a fever or illness today?: No Has the patient ever had Guillain-Haviland Syndrome?: No Has the patient ever had any past reaction to a flu shot?: No Immunizations Fluarix [id number] (PF) 45 mcg (15 mcg x 3)/0.5 mL IM syringe Performing Provider: Ksenia Bergeron MD Performing Location[place] [facility] [place] [facility] [place] Administered by: Jose Hunter CMA on 04/26/25 10:27 Dose Route Admin Location Dispensed Lot Number Expiration Date [facility] Make Ready Worker 0.5 mL IM Left Deltoid 0.5 mL [id number] 01/23/26 [id number] [employer] VIS Given Date VIS Provided VIS Publication Date 04/26/25 Single Vaccine 24 Eligibility Eligibility Date Funding Source Not [facility] Eligible 04/26/25 Private Assessment & Plan Assessment & Plan Orders: Orders Influenza [id number] Immunization Today Z23 - Encounter for immunization Coding
--- OUTSIDE RECORDS SUMMARY | 2025-04-26 10:51 | XMS_ITS | Encounter Summary ---
Author Organization [facility] Address [address] [place] [address] Phone Care Team Providers Care It Service Continuity Supervisor Name Role Phone Ksenia Bergeron MD Primary Care Provider Reason for Referral * - New Request Specialty Diagnoses / Procedures Referred By Contac t Referred To Contact Radiology Diagnoses Left arm pain Right arm pain Thoracic outlet syndrome Procedures US Upper Extremity Veins Duplex Complete (Bilateral) Madan Hartley MD [address] [place] [address] Phone: tel: fax: mailto:[email or web address] Referral ID Status Reason Start Date Expiration Date V isits Requested Visits Authorized [id number] New Request 04/20/2025 1 1 * - New Request Specialty Diagnoses / Procedures Referred By Contac t Referred To Contact Radiology Diagnoses Left arm pain Right arm pain Thoracic outlet syndrome Procedures US Upper Extremity Arteries Duplex Complete (Bilateral) Madan Hartley MD [address] [place] [address] Phone: tel: fax: mailto:[email or web address] Referral ID Status Reason Start Date Expiration Date V isits Requested Visits Authorized [id number] New Request 04/20/2025 1 1 * MRI/CAT Scan - New Request Specialty Diagnoses / Procedures Referred By Fei carvalho Referred To Contact Radiology Diagnoses Left arm pain Right arm pain Thoracic outlet syndrome Procedures MRI Angio Chest Madan Hartley MD [address] [place] [address] Phone: tel: fax: mailto:[email or web address] Referral ID Status Reason Start Date Expiration Date V isits Requested Visits Authorized [id number] New Request 04/20/2025 1 1 Encounter Details Date Type Department Care Team (Late Contact Info) Description 04/20/2025 Orders Only [facility] Vascular Surgery [address] [place] [id number] Madan Hartley MD [address] [place], [place] [id number] [email or web address] Left arm pain (Primary Dx); Right arm pain; Thoracic outlet syndrome Social History Tobacco Use Types Packs/Day Years Used Date Smoking Tobacco: Never Assessed Education Answer Date Recorded Are you interested in more education? Not on romie e 03/09/2025 Are you concerned about learning? Not on file 03/09/2025 No 03/09/2025 No 03/09/2025 Digital Access Answer Date Recorded No 03/09/2025 No 03/09/2025 Reliable internet access at home? Not on file 03/09/2025 Device with a working camera? Not on file Comments Unknown Sex and Gender Information Value Date Recorded Sex Assigned at Female 03/09/2025 10:40 AM EDT Legal Sex Female 10:37 AM EDT Gender Identity Female 03/09/2025 10:40 AM EDT Sexual Orientation Straight 03/09/2025 10 :40 AM EDT documented as of this encounter Plan of Treatment Upcoming Encounters Date Type Department Care Team (Late Contact Info) Description 05/05/2025 10:30 AM EDT Office Visit [facility] Vascular Surgery [address] [place] [id number] Madan Hartley MD [address] [place] [phone] [email or web address] Scheduled Orders Name Type Priority Associated Diagnoses Orde r Schedule MRI Angio Chest Imaging Routine Left arm pain Right arm pain Thoracic outlet syndrome Expected: 04/20/2025, Expires: 04/20/2026 Upper Extremity Arteries Duplex Complete (Bilateral) Vascular Routine Left arm pain Right arm pain Thoracic outlet syndrome Expected: 04/20/2025, Expires: 04/20/2026 US Upper Extremity Veins Duplex Complete (Bilateral) Vascular Routine Left arm pain Right arm pain Thoracic outlet syndrome Expected: 04/20/2025, Expires: 04/20/2026 documented as of this encounter Visit Diagnoses Diagnosis Left arm pain- Primary Pain in soft tissues of limb Right arm pain Pain in soft tissues of limb Thoracic outlet syndrome Brachial plexus lesions documented in this encounter Care Teams It Service Continuity Supervisor Relationship Specialty Start Date End Date Ksenia Bergeron MD [address] [address] PCP - General Internal Medicine 03/09/25 documented as of this encounter Additional Source Comments The information contained in this document represents components of the legal health record. It is not the complete legal health record.[facility]
--- OUTSIDE RECORDS SUMMARY | 2025-04-26 10:52 | XMS_ITS | Clinical Summary ---
Author Organization [facility] Address [address] [place] [address] Phone Care Team Providers Care Director Of Vocational Guidance Name Role Phone Ksenia Bergeron MD Primary Care Provider Encounters Date Type Department Care Team Description 04/20/2025 Orders Only [facility] Vascular Surgery [address] [place] [phone] Madan Hartley MD Left arm pain (Primary Dx); Right arm pain; Thoracic outlet syndrome from Last 3 Months Social History Tobacco Use Types Packs/Day Years [...] Orientation Straight 03/09/2025 10 :40 AM EDT Plan of Treatment Upcoming Encounters Date Type Department Care Team (Late st Contact Info) Description 05/05/2025 10:30 AM EDT Office Visit [facility] Vascular Surgery [address] [place] [phone] Madan Hartley MD [address] [place] [address] [email or web address] Due Date Last Done Comments Adult Td,Tdap Booster 1966 LIPID PANEL 1966 DEPRESSION SCREENING 1978 SMOKING Hx and SMOKELESS TOB ACCO SCREENING 11/11/1979 HEPATITIS C SCREENING 1984 HIV ONE-TIME SCREENING (18-6 5 YEARS) 1984 PAP SMEAR 11/11/1987 MAMMOGRAM 2006 COLOGUARD 11/11/2011 COLONOSCOPY 11/11/2011 COLORECTAL CANCER SCREENING 11/11/2011 FIT TEST 11/11/2011 FOBT 11/11/2011 SIGMOIDOSCOPY 11/11/2011 VIRTUAL COLONOSCOPY 11/11/2011 PNEUMOCOCCAL VACCINES (50+ y ears) (1 of 1 - PCV) 2016 ZOSTER VACCINES (1 of 2) 2016 INFLUENZA VACCINE (#1) 2025 COVID-19 VACCINE (1 - 2023-2 5 season) 2025 HEPATITIS A VACCINES Aged Out No long er eligible based on patient's age to complete this topic HIB VACCINES Aged Out No longer eligi ble based on patient's age to complete this topic MENINGOCOCCAL VACCINES (ACWY) Aged Out No longer eligible based on patient's age to complete this topic MENINGOCOCCAL VACCINES (B) Aged Out N o longer eligible based on patient's age to complete this topic Medical Devices Not on file Insurance [employer] Member Subscriber Plan / Payer (Ef fective 2024-Present) Name:Saleem Holley Relation to Subscriber:Self Name:Saleem Holley Payer ID:[id number] (NAIC) Type:PPO Address: [place] [id number] [employer] Member Subscriber Plan / Payer (Ef fective 2024-Present) Name:Saleem Holley Relation to Subscriber:Self Name:Saleem Holley Payer ID:[id number] (NAIC) Type:PPO Address: [address] [employer] B[employer]EFITS ADMIN[employer]RATORS [employer] Care Teams Director Of Vocational Guidance Relationship Specialty Start Date End Date Ksenia Bergeron MD [facility] [address] PCP - General Internal Medicine 03/09/25 Additional Source Comments The information contained in this document represents components of the legal health record. It is not the complete legal health record.[facility]
--- OUTSIDE RECORDS SUMMARY | 2025-04-26 10:52 | XMS_ITS | Patient Health Record ---
Author Organization [facility] Address [address] [place] [address] Care Team Providers Care Mobile Electronics Installer Name Role Phone Ksenia Bergeron MD Primary Care Provider Marcos Davila Unavailable [phone] Allergies Allergen (clinical drug ingredient) Drug/Non Drug Allergy documented on EMR Reaction Allergy Type Onset Date Status [place] Passion Fruit OS boils Drug Allergy Active [...] Problem Status W/U Status Risk Notes Problem 186692506 Colon cancer screening (Z12.11) Active confirmed Problem Diverticular disease of colon (480037814) Diverticulosis of large intestine without perforation or abscess without bleeding (K57.30) Active confirmed Problem 495982555431516 Preprocedural examination (Z01.818) Active confirmed Problem 619046699 Family history o f colon cancer (Z80.0) Active confirmed Plan Of Treatment Future Test Test Name Order Date COLONOSCOPY 08/06/2023 Insurance Providers Payer Name Payer Address Payer Phone Subscriber Number Group Number Insured Name Patient Relationship to Insured Coverage Start Date Coverage End Date [employer] [place] 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 Prince Surgical History Surgery Date(Month/Year) S/P Patent ductus arteriosus repair age 23 Scalp osteoma
== END 2025-04-26 11:55 | disposition home or self-care (01) ==
LOC: HO.HMCC 09:52
PROVIDERS: PCP Internal Medicine; Visit Provider Internal Medicine
DX: Z23 Encounter for immunization (principal)

== ENCOUNTER → 2025-04-26 09:52 | Outpatient (BNVA) | payer OTHER, SELFPAY | PROVIDERS: PCP Internal Medicine; Visit Provider Internal Medicine | DX: Z23 Encounter for immunization (principal) | CPT/HCPCS: 90471; 90656 ==

== ENCOUNTER 2025-05-18 13:11 | Outpatient (REF) | payer OTHER, SELFPAY ==
--- NOTE | 2025-05-18 13:14 | EMG_ITS ---
Chief complaint: Left arm feels heavy and weak especially when hanging on the side, denies pain, denies numbness Reason for referral: Evaluate for thoracic outlet syndrome or brachial plexopathy Referred by: Dr. Bergeron Procedure done: Left upper extremity NCS/EMG Precautions and/or limitations: None The limb temperature was monitored continuously and remained between 32-36 degrees C during the performance of the NCS. Nerve Conduction Studies Anti Sensory Summary Table ?Stim Site NR Onset (ms) Norm Onset (ms) Peak (ms) Norm Peak (ms) O-P Amp (?V) Norm O-P Amp Site1 Site2 Delta-0 (ms) Dist (cm) Alvarado (m/s) Norm Alvarado (m/s) Left Lat Ante Brach Cutan Anti Sensory (Lat Forearm) Lat Biceps ? 2.2 2.5 0.3 Lat Biceps Lat Forearm 2.2 0.0 Left Med Ante Brach Cutan Anti Sensory (Med Forearm) Elbow ? 1.4 2.2 19.1 Elbow Med Forearm 1.4 0.0 Left Median Anti Sensory (2nd Digit) Wrist ? 2.5 3.3 <3.6 75.0 >10 Wrist 2nd Digit 2.5 14.0 56 Left Radial Anti Sensory (Thumb) Forearm ? 1.4 1.9 <3.1 15.2 Forearm Thumb 1.4 0.0 Left Ulnar Anti Sensory (5th Digit) Wrist ? 2.4 3.4 <3.7 21.6 >15.0 Wrist 5th Digit 2.4 14.0 58 Motor Summary Table ?Stim Site NR Onset (ms) Norm Onset (ms) O-P Amp (mV) Norm O-P Amp iAmp (mV) Amp (1st) (%) Site1 Site2 Delta-0 (ms) Dist (cm) Alvarado (m/s) Norm Alvarado (m/s) Left Median Motor (Abd Poll Brev) Wrist ? 3.4 <3.9 12.6 >4.5 14.9 100.0 Elbow Wrist 4.0 22.0 55 >45 Elbow ? 7.4 10.3 12.3 81.7 Left Ulnar Motor (Abd Dig Minimi) Wrist ? 3.0 <3.0 9.7 >5 11.1 100.0 B Elbow Wrist 3.2 19.0 59 >45 B Elbow ? 6.2 9.0 10.4 92.8 A Elbow B Elbow 1.7 10.0 59 >45 A Elbow ? 7.9 8.6 10.2 88.7 EMG ?Side Muscle Nerve Root Ins Act Fibs Psw Amp Dur Poly Recrt Int Pat Comment Left 1stDorInt Ulnar C8-T1 Nml Nml Nml Nml Nml 0 Nml Complete Left FlexCarpiUln Ulnar C8,T1 Nml Nml Nml Nml Nml 0 Nml Complete Left Biceps Musculocut C5-6 Nml Nml Nml Nml Nml 0 Nml Complete Left Triceps Radial C6-7-8 Nml Nml Nml Nml Nml 0 Nml Complete Left Deltoid Axillary C5-6 Nml Nml Nml Nml Nml 0 Nml Complete Paraspinal EMG ?Side Muscle Nerve Root Ins Act Fibs Psw Comment Left Cervical Upper Rami Nml Nml Nml Left Cervical Mid Rami Nml Nml Nml Left Cervical Lower Rami Nml Nml Nml FINDINGS: All motor and sensory nerves tested showed normal latencies, amplitudes and conduction velocities. Concentric needle EMG was performed in selected muscles of the left upper extremity and cervical paraspinal. Study did not reveal signs of electric abnormalities as shown in the table above. IMPRESSION: 1. This is a normal study. 2. There is no electrodiagnostic evidence for median neuropathy, ulnar neuropathy, brachial plexopathy, or cervical radiculopathy. Thank you for your kind referral. Adriane Newsome MD, JEWELS Board Certified, [place] [employer] and Rehabilitation (ABPMR) Board Certified, [place] Board of Electrodiagnostic Medicine (ABEM) CODIN [id number], 1 extremity MTDD
== END 2025-05-18 13:12 | disposition home or self-care (01) ==
LOC: HO.NEURO 13:11
PROVIDERS: PCP Internal Medicine; Visit Provider Internal Medicine
DX: I87.1 Compression of vein (principal); R20.2 Paresthesia of skin; R20.0 Anesthesia of skin
CPT/HCPCS: 95886; 95910

== ENCOUNTER → 2025-05-18 13:14 | Outpatient (BNV) | payer OTHER, SELFPAY | PROVIDERS: PCP Internal Medicine; Visit Provider Physical Medicine & Rehabilitation | DX: I87.1 Compression of vein (principal); R53.1 Weakness | CPT/HCPCS: 95886; 95910 ==